=== PATIENT | female | born 2005 | race Caucasian/White ===

== ENCOUNTER 2023-01-10 08:00 | Outpatient (CLI) | payer OTHER ==
[2023-01-10 15:47] LABS: BILIRUBIN,URINE NEGATIVE (NEGATIVE); GLUCOSE, URINE (UA) NEGATIVE (NEGATIVE); KETONES,URINE (UA) NEGATIVE (NEGATIVE); LEUKOCYTE ESTERASE, URINE NEGATIVE (NEGATIVE); NITRITE,URINE NEGATIVE (NEGATIVE); OCCULT BLOOD,URINE NEGATIVE (NEGATIVE); PH,URINE 6.5 PH (5.0-7.5); PROTEIN,URINE NEGATIVE (NEGATIVE); UROBILINOGEN,URINE 0.2 (NORMAL) E.U./dL (NORMAL)
[2023-01-10 16:16] LABS: BACTERIA,URINE Moderate /HPF (None Seen); CLARITY,URINE HAZY (CLEAR); RBC,URINE None Seen /HPF (0-5); SQUAMOUS EPITHELIAL CELL,UR MANY Squamous (<= Few); WBC,URINE 0-3 /HPF (0-5)
== END 2023-01-10 23:59 | disposition home or self-care (01) ==
LOC: LAB.WC 08:00
PROVIDERS: ATTEND Nurse Practitioner
DX: Z34.90 Encounter for supervision of normal pregnancy, unspecified, unspecified trimester (principal)
CPT/HCPCS: 81001; 87086

== ENCOUNTER 2023-02-11 08:00 | Outpatient (CLI) | payer OTHER ==
[2023-02-11 21:51] LABS: CHLAMYDIA TRACHOMATIS DNA NEGATIVE (NEGATIVE); NEISSERIA GONORRHOEAE DNA NEGATIVE (NEGATIVE); TRICHOMONAS VAGINALIS DNA NEGATIVE (NEGATIVE)
== END 2023-02-11 23:59 | disposition home or self-care (01) ==
LOC: LAB.WC 08:00
PROVIDERS: ATTEND Nurse Practitioner
DX: Z11.3 Encounter for screening for infections with a predominantly sexual mode of transmission (principal)
CPT/HCPCS: 87491; 87591; 87661

== ENCOUNTER 2023-02-11 12:49 | Outpatient (CLI) | payer OTHER ==
--- NOTE | 2023-02-12 14:09 | Ultrasound Report ---
PROCEDURE: OB First Trimester INDICATIONS: POSITIVE TEST OUTSIDE/PRIOR DATING DATA: Last menstrual period (LMP): 11/08/2022. LMP-based estimated date of delivery (JENNIFER): 08/15/2023. First dating scan (date and location): 02/11/2023. Estimated date of delivery (JENNIFER) from first dating scan: 08/13/2023. TECHNIQUE: Real-time scanning was performed of the fetus and maternal pelvic organs, with image documentation. COMPARISON: None. FINDINGS: Intrauterine gestational sac present. Embryo: Hardy-rump length measures 7.78 cm, consistent with 13 weeks and 6 days Heart rate: 148 bpm. Other: Subchorionic hemorrhage measuring 2.1 x 1.5 x 1.9 cm. Measurement variability in dating: +/- 4 weeks by LMP, +/- 7 days by mean sac diameter (use before 6 weeks gestation if crown-rump length not able to be measured), +/- 5 days by crown-rump length (6-12 weeks gestation). Maternal organs: Ovaries appear within normal limits. IMPRESSION: 1.Single live intrauterine consistent with 13 weeks and 6 days. 2.Subchorionic hemorrhage measuring 2.1 cm. Reviewed by: Sen Barnes MD on 02/12/2023 2:08 PM PST Approved by: Sen Barnes MD on 02/12/2023 2:08 PM PST Station ID: [id number]
== END 2023-02-11 12:50 | disposition home or self-care (01) ==
LOC: DI 12:49
PROVIDERS: ATTEND Nurse Practitioner
DX: O20.8 Other hemorrhage in early pregnancy (principal); Z3A.13 13 weeks gestation of pregnancy; Z11.3 Encounter for screening for infections with a predominantly sexual mode of transmission
CPT/HCPCS: 87491; 87591; 87661

== ENCOUNTER 2023-03-15 23:42 | Emergency (ER) | payer OTHER ==
[2023-03-16 00:07] LABS: BILIRUBIN,URINE NEGATIVE (NEGATIVE); GLUCOSE, URINE (UA) NEGATIVE (NEGATIVE); KETONES,URINE (UA) TRACE mg/dL (NEGATIVE); LEUKOCYTE ESTERASE, URINE NEGATIVE (NEGATIVE); NITRITE,URINE NEGATIVE (NEGATIVE); OCCULT BLOOD,URINE NEGATIVE (NEGATIVE); PROTEIN,URINE NEGATIVE (NEGATIVE); UROBILINOGEN,URINE 0.2 (NORMAL) E.U./dL (NORMAL)
[2023-03-16 00:17] LABS: CLARITY,URINE CLEAR (CLEAR); HCG UR QUAL POSITIVE
--- NOTE | 2023-03-16 00:25 | ED Physician Documentation ---
PD HPI ABD PAIN - Stated complaint Stated Complaint: ABD PX - Chief complaint Chief Complaint: Abd Pain - History obtained from History obtained from: Patient - Additional information Additional information: 17yoF at 18wks gestation presents by private vehicle from home for intermittent sharp LUQ pain since this morning. Unable identify what makes it better or worse. Here to see if baby is "kicking on stomach". Denies vaginal bleeding, loss of fluids, dysuria. Complaint of white discharge in triage, however patient denies discharge or vaginal complaints today. Review of Systems Constitutional: denies: Fever, Chills GI: reports: Abdominal Pain. denies: Nausea, Vomiting, Constipation, Diarrhea Neurologic: denies: Generalized weakness, Focal weakness, Numbness PD PAST MEDICAL HISTORY - Past Medical History Past Medical History: No Cardiovascular: None Respiratory: None Neuro: None Endocrine/Autoimmune: None GI: None GLOBAL ANALYTICS HEAD: None : None HEENT: None Psych: None Musculoskeletal: None - Past Surgical History Past Surgical History: No - Allergies Allergies/Adverse Reactions: Allergies Allergy/AdvReac Type Severity Reaction Status Date / Time No Known Drug Allergies Allergy Verified 03/15/23 23:44 - Social History Does the pt smoke?: No Smoking Status: Never smoker Does the pt drink ETOH?: No Does the pt have substance abuse?: No - Immunizations Immunizations are current?: Yes PD ED PE NORMAL - Vitals Vital signs reviewed: Yes - General General: Alert and oriented X 3, No acute distress, Well developed/nourished - Cardiac Cardiac: RRR, Strong equal pulses - Respiratory Respiratory: No respiratory distress - Abdomen Abdomen: Soft, Non tender, Non distended, Other (gravid consistent with gestational age) - Extremities Extremities: No deformity, No tenderness to palpate, Normal ROM s pain, No edema - Neuro Neuro: Alert and oriented X 3, vp publisher development 2-12 intact, No motor deficit, Normal speech - Psych Psych: Normal mood, Normal affect Results - Vitals Vitals: Vital Signs - 24 hr 03/15/23 03/16/23 23:44 00:31 Temperature 36.5 C Heart Rate 86 88 Respiratory 16 18 Rate Blood Pressure 140/76 H 119/67 O2 Saturation 100 98 Oxygen O2 Source Room air - Labs Labs: Laboratory Tests 03/15/23 03/15/23 23:52 23:52 Urine Color YELLOW Urine Clarity CLEAR Urine pH 6.0 Ur Specific [place] >=1.030 H Urine Protein NEGATIVE Urine Glucose (UA) NEGATIVE Urine Ketones TRACE Urine Occult Blood NEGATIVE Urine Nitrite NEGATIVE Urine Bilirubin NEGATIVE Urine Urobilinogen 0.2 (NORMAL) Ur Leukocyte Esterase NEGATIVE Ur Microscopic Review NOT INDICATED Urine Culture Comments NOT INDICATED Urine HCG, Qual POSITIVE PD Medical Decision Making - ED course Complexity details: re-evaluated patient, considered differential, d/w patient, d/w family ED course: Left upper quadrant tenderness for 1 day. Abdomen is soft, uterus is gravid, no reproducible tenderness to light or deep palpation in any quadrant of the abdomen. [id number] ultrasound shows fetus at corresponding gestational age with appropriate heart tones. Based on patient's gestational age is highly unlikely that the fetus is pressing on stomach or other organs. Patient relieved after seeing ultrasound of fetus and declines blood work. She will follow with her CONCHE OPERATOR as previously scheduled. Departure - Departure Disposition: 01 Home, Self Care Clinical Impression: Abdominal pain Qualifiers: Abdominal location: left upper quadrant Qualified Code(s): R10.12 - Left upper quadrant pain Condition: Stable Instructions: Abdominal Pain Comments: Everything appears to be normal with baby per bedside ultrasound. Your urine did not show any signs of infection. Continue to follow-up with your CONCHE OPERATOR as previously scheduled.You can also try taking [id number]-[id number] acid medications to see if this helps such as pepcid. This is safe in Forms: PCP List Discharge Date/Time: 03/16/23 00:31
[2023-03-16 00:38] VITALS: BP 119/67; O2SAT 98
== END 2023-03-16 00:31 | disposition home or self-care (01) ==
LOC: ED 23:42
DX: O26.892 Other specified pregnancy related conditions, second trimester (principal); R10.12 Left upper quadrant pain; Z3A.18 18 weeks gestation of pregnancy
CPT/HCPCS: 81001; 81003; 81025; 81514; 87086; 99283

== ENCOUNTER 2023-03-27 18:26 | Outpatient (CLI) | payer OTHER ==
--- NOTE | 2023-03-28 11:04 | Ultrasound Report ---
PROCEDURE: OB Anatomy Scan INDICATIONS: SUPERVISION OF OUTSIDE/PRIOR DATING DATA: Last menstrual period (LMP): 11/08/2022. LMP-based estimated date of delivery (JENNIFER): 08/15/2023. First dating scan (date and location): 02/11/2023. Estimated date of delivery (JENNIFER) from first dating scan: 08/13/2023. The below data below was generated using the clinical JENNIFER of 08/15/2023 TECHNIQUE: Real-time scanning was performed of the fetus, with image documentation and biometric measurements. Endovaginal scanning: Not performed. COMPARISON: Ultrasound 02/11/2023 FINDINGS: General: A single living intrauterine gestation is present. Presentation: Variable Placenta: Placental position is posterior, without previa. Amniotic fluid index: 16.6 cm, within normal limits for gestational age. heart rate: 137 beats per minute. Maternal cervical canal: Closed, 7.8 cm biometrics: Biparietal diameter: 4.8 cm, 20 weeks 3 days, 71% Head circumference: 17.8 cm, 20 weeks 2 days, 62% Abdominal circumference: 16.3 cm, 21 weeks 3 days, 80% Femur length: 30.9 cm, 19 weeks 4 days, 32% Estimated gestational age from initial scan: 19 weeks 6 days Composite gestational age from present scan: 20 weeks 2 days Estimated weight and percentile: 359 g, 82% Measurement variability in biometric dating: +/- 10 days from 12-20 weeks gestation, +/- 2 weeks from 20-30 weeks gestation, +/- 3 weeks at 30 weeks gestation or later. Anatomic survey: Neuro: Ventricles are normal at less than 10 mm. Cisterna magna is normal at 3-11 mm. Cerebellum i s normal in size and morphology. Nuchal skin fold: Normal at less than 6 mm between 14 and 20 weeks gestational age. Face: Not well seen. Spine: No evidence for spina bifida. Heart: 4-chambered heart is present, with normal ventricular outflow tracts. Diaphragm: Diaphragm is intact. Stomach: Left-sided stomach is present. Kidneys: No hydronephrosis. Normal is less than 5 mm in 2nd trimester, less than 7 mm in 3rd trimester. Cord: 3 vessel cord has orthotopic insertion. Bladder: Normal in size. Extremities: All 4 extremities are visualized. IMPRESSION: 1.Single live intrauterine consistent with 20 weeks and 2 days. 2.The facial profile is not well seen. Otherwise, normal anatomic survey. Reviewed by: Sen Barnes MD on 03/28/2023 11:03 AM PST Approved by: Sen Barnes MD on 03/28/2023 11:03 AM PST Station ID: [id number]
== END 2023-03-27 18:27 | disposition home or self-care (01) ==
LOC: DI 18:26
PROVIDERS: ATTEND Nurse Practitioner
DX: Z34.92 Encounter for supervision of normal pregnancy, unspecified, second trimester (principal)

== ENCOUNTER 2023-04-04 08:00 | Outpatient (CLI) | payer OTHER ==
[2023-04-04 20:59] LABS: BACTERIAL VAGINOSIS DNA NEGATIVE (NEGATIVE); CANDIDA GLABRATA DNA NEGATIVE (NEGATIVE); CANDIDA GROUP DNA NEGATIVE (NEGATIVE); CANDIDA KRUSEI DNA NEGATIVE (NEGATIVE); TRICHOMONAS VAGINALIS DNA NEGATIVE (NEGATIVE)
== END 2023-04-04 23:59 | disposition home or self-care (01) ==
LOC: LAB.WC 08:00
PROVIDERS: ATTEND Nurse Practitioner
DX: N89.8 Other specified noninflammatory disorders of vagina (principal)
CPT/HCPCS: 81514

== ENCOUNTER 2023-04-07 13:33 | Outpatient (CLI) | payer OTHER ==
--- NOTE | 2023-04-07 15:17 | Ultrasound Report ---
PROCEDURE: OB Follow up INDICATIONS: SUPERVISION OF NORMAL PREG, F/U TO FAS OUTSIDE/PRIOR DATING DATA: Last menstrual period (LMP): 11/08/2022. LMP-based estimated date of delivery (JENNIFER): 08/15/2023. First dating scan (date and location): 02/11/2023. Estimated date of delivery (JENNIFER) from first dating scan: 08/13/2023. The below data below was generated using the clinical JENNIFER of 08/07/2023 TECHNIQUE: Real-time scanning was performed of the fetus, with image documentation. Endovaginal scanning: Not performed. COMPARISON: 03/27/2023 FINDINGS: General: A single living intrauterine gestation is present. Presentation: Vertex Placenta: Placental position is posterior, without previa. Amniotic fluid index: 11.4 cm, within normal limits for gestational age. heart rate: 141 beats per minute. Maternal cervical canal: 5.1 cm long; normal length is 2.5 cm or more. Other: Facial profile appears normal. However, the nasal bone is not well visualized. IMPRESSION: Single living intrauterine at 21 weeks 3 days, JENNIFER of 08/15/2023. Facial profile appears within normal limits, although the nasal bone is not seen in profile. Short-te rm follow-up is recommended, as findings can be seen in the setting of trisomy 21. Reviewed by: Teodoro Leger MD on 04/07/2023 3:15 PM PST Approved by: Teodoro Leger MD on 04/07/2023 3:15 PM PST Station ID: [id number]
[2023-04-09 20:08] LABS: AFP MOM 0.57 (.); AFP VALUE 40.9 ng/mL (.); DIA MOM See interpretation. (.); DSR (BY AGE) 1 IN 1163 (.); DSR (SECOND TRIMESTER) 1 IN See interpretation. (.); HCG MOM See interpretation. (.); HCG VALUE 6677 mIU/mL (.); INSULIN DEP DIABETES No (.); MULTIPLE GESTATION No (.); OPEN SPINA BIFIDA RISK 1 IN 10000 (.); RACE Caucasian (.); RESULTS Report (.); TEST RESULTS See interpretation. (.); TRISOMY 18 RISK See interpretation. (.); UE3 MOM See interpretation. (.); UE3 VALUE 2.83 ng/mL (.); WEIGHT 160 lbs (.)
== END 2023-04-07 13:34 | disposition home or self-care (01) ==
LOC: DI 13:33
PROVIDERS: ATTEND Nurse Practitioner
DX: Z34.92 Encounter for supervision of normal pregnancy, unspecified, second trimester (principal)
CPT/HCPCS: 36415; 81511

== ENCOUNTER 2023-04-10 11:28 | Outpatient (CLI) | payer OTHER ==
[2023-04-10 11:42] LABS: HCT - HEMATOCRIT 33.2 % (37.0-47.0); HGB - HEMOGLOBIN 10.7 g/dL (12.0-16.0); MEAN CORPUSCULAR HEMOGLOBIN 29.4 pg (27.0-31.0); MEAN CORPUSCULAR HGB CONC 32.2 g/dL (32.0-36.0); MEAN CORPUSCULAR VOLUME 91.2 fL (81.0-99.0); MEAN PLATELET VOLUME 10.5 fL (7.9-10.8); RED BLOOD COUNT 3.64 10^6/uL (4.20-5.40); RED CELL DISTRIBUTION WIDTH 13.1 % (12.0-15.0); WHITE BLOOD COUNT 15.9 x10^3/uL (4.8-10.8)
[2023-04-10 12:11] LABS: ALBUMIN 3.8 g/dL (3.2-5.5); ALBUMIN/GLOBULIN RATIO 1.2 (1.0-2.2); BILIRUBIN,TOTAL 0.2 mg/dL (0.2-1.0); CALCIUM 9.6 mg/dL (8.5-10.3); CREATININE 0.4 mg/dL (0.6-1.3); POTASSIUM 4.4 mmol/L (3.5-4.5)
[2023-04-10 12:12] LABS: THYROID STIMULATING HORMONE 0.66 uIU/mL (0.34-5.60)
[2023-04-10 12:14] LABS: ESTIMATED AVERAGE GLUCOSE 97 mg/dL (70-100)
[2023-04-10 12:19] LABS: FERRITIN 7.5 ng/mL (11.0-306.8)
== END 2023-04-10 11:29 | disposition home or self-care (01) ==
LOC: LAB 11:28
PROVIDERS: ATTEND Nurse Practitioner
DX: R42 Dizziness and giddiness (principal)
CPT/HCPCS: 36415; 80053; 82728; 83036; 84443; 85027

== ENCOUNTER 2023-04-25 15:53 | Emergency (ER) | payer OTHER ==
[2023-04-25 16:43] LABS: BILIRUBIN,URINE NEGATIVE (NEGATIVE); GLUCOSE, URINE (UA) NEGATIVE (NEGATIVE); KETONES,URINE (UA) NEGATIVE (NEGATIVE); LEUKOCYTE ESTERASE, URINE NEGATIVE (NEGATIVE); NITRITE,URINE NEGATIVE (NEGATIVE); OCCULT BLOOD,URINE NEGATIVE (NEGATIVE); PROTEIN,URINE NEGATIVE (NEGATIVE); UROBILINOGEN,URINE 0.2 (NORMAL) E.U./dL (NORMAL)
[2023-04-25 16:44] LABS: CLARITY,URINE HAZY (CLEAR)
[2023-04-25 16:45] LABS: BASOPHILS % (AUTO) 0.3 %; EOSINOPHILS # (AUTO) 0.1 10^3/uL (0.0-0.7); EOSINOPHILS % (AUTO) 0.5 %; HCT - HEMATOCRIT 35.1 % (37.0-47.0); HGB - HEMOGLOBIN 11.2 g/dL (12.0-16.0); LYMPHOCYTES # (AUTO) 1.4 10^3/uL (1.5-3.5); LYMPHOCYTES % (AUTO) 10.6 %; MEAN CORPUSCULAR HEMOGLOBIN 29.4 pg (27.0-31.0); MEAN CORPUSCULAR HGB CONC 31.9 g/dL (32.0-36.0); MEAN CORPUSCULAR VOLUME 92.1 fL (81.0-99.0); MEAN PLATELET VOLUME 10.5 fL (7.9-10.8); MONOCYTES # (AUTO) 0.6 10^3/uL (0.0-1.0); MONOCYTES % (AUTO) 4.7 %; NEUTROPHILS # (AUTO) 10.7 10^3/uL (1.5-6.6); NEUTROPHILS % (AUTO) 81.3 %; PLT - PLATELET COUNT 252 10^3/uL (130-450); RED BLOOD COUNT 3.81 10^6/uL (4.20-5.40); RED CELL DISTRIBUTION WIDTH 14.4 % (12.0-15.0); WHITE BLOOD COUNT 13.1 x10^3/uL (4.8-10.8)
[2023-04-25 16:50] LABS: BACTERIA,URINE Rare /HPF (None Seen); RBC,URINE None Seen /HPF (0-5); SQUAMOUS EPITHELIAL CELL,UR MANY Squamous (<= Few); WBC,URINE 0-3 /HPF (0-5)
--- NOTE | 2023-04-25 16:58 | ED Physician Documentation ---
History of Present Illness - Stated complaint Stated Complaint: CHEST PX/NAUSEA/WEAKNESS - Chief complaint Chief Complaint: Cardiac - History obtained from History obtained from: Patient - Additonal information Additional information: Patient is a 17-year-old female, G1, P0 who is approximately 24 weeks presenting for evaluation of palpitations that been ongoing for the past several months. She states that around 1:00 today she felt like her heart was racing. She reports that her symptoms have been on and off for months and she is scheduled to have a property assessment monitor placed next week but that her symptoms today seem like they are lasting longer than usual. She was also diagnosed with anemia in her 2 weeks ago and has been taking iron supplements. She reports ongoing fatigue. No shortness of air. No abdominal pain, nausea, vomiting. She is feeling baby move. Denies abdominal cramping, vaginal bleeding or leakage of fluids, back pain.Her OB is through [facility] and she sees Jessica Avendano. She is on iron replacement as well as a baby aspirin. She reports concern for preeclampsia as she has had headaches in the past including today although not severe as well as developing a little swelling in her legs.She read online that these could be symptoms of preeclampsia which prompted her concern. Reports that last appointment her blood pressure was in the 130s. Review of Systems Constitutional: denies: Fever Cardiac: reports: Palpitations Respiratory: denies: Dyspnea GI: denies: Abdominal Pain, Vomiting : denies: Dysuria Musculoskeletal: reports: Extremity swelling Neurologic: denies: Syncope PD PAST MEDICAL HISTORY - Past Medical History Cardiovascular: None Respiratory: None Neuro: None Endocrine/Autoimmune: None GI: None HOSE HANDLER: None : None HEENT: None Psych: None Musculoskeletal: None - Past Surgical History Past Surgical History: No - Present Medications Home Medications: Ambulatory Orders Medication Instructions Recorded Confirmed Aspirin [[place]] 81 mg PO DAILY 04/25/23 04/25/23 Ferrous Sulfate [Feosol] 325 mg PO DAILY 04/25/23 04/25/23 - Allergies Allergies/Adverse Reactions: Allergies Allergy/AdvReac Type Severity Reaction Status Date / Time No Known Drug Allergies Allergy Verified 04/25/23 16:10 - Social History Does the pt smoke?: No Smoking Status: Never smoker Does the pt drink ETOH?: No Does the pt have substance abuse?: No - Immunizations Immunizations are current?: Yes PD ED PE NORMAL - General General: Alert and oriented X 3, No acute distress, Well developed/nourished - HEENT HEENT: Atraumatic, PERRL, EOMI, Moist mucous membranes, Pharynx benign - Neck Neck: Supple, no meningeal sign - Cardiac Cardiac: RRR, Strong equal pulses - Respiratory Respiratory: No respiratory distress, Clear bilaterally - Abdomen Abdomen: Normal bowel sounds, Soft, Non tender, Other (Gravid abdomen with uterus above umbilicus) - Derm Derm: Warm and dry - Extremities Extremities: Other (Minimal swelling to bilateral ankles) - Neuro Neuro: Alert and oriented X 3, No motor deficit, No sensory deficit, Normal speech Results - Vitals Vitals: Vital Signs - 24 hr 04/25/23 04/25/23 04/25/23 16:07 16:40 17:10 Temperature 36.3 C L Heart Rate 95 93 94 Respiratory 16 16 16 Rate Blood Pressure 136/80 H 129/83 H 121/81 H O2 Saturation 100 99 98 04/25/23 04/25/23 17:30 18:30 Temperature Heart Rate 95 99 Respiratory 18 22 Rate Blood Pressure 130/69 119/63 O2 Saturation 98 100 Oxygen O2 Source Room air - EKG (time done) 1640 EKG releavant findings:: EKG personally interpreted by author of this note. Relevant findings are: Rate 99, normal sinus rhythm, no STEMI, QTc 396 - Labs Labs: Laboratory Tests 04/25/23 04/25/23 04/25/23 16:30 16:36 16:36 WBC 13.1 H RBC 3.81 L Hgb 11.2 L Hct 35.1 L MCV 92.1 MCH 29.4 MCHC 31.9 L RDW 14.4 Plt Count 252 MPV 10.5 Neut # (Auto) 10.7 H Lymph # (Auto) 1.4 L Mason # (Auto) 0.6 Eos # (Auto) 0.1 Baso # (Auto) 0.0 Absolute Nucleated RBC 0.00 Nucleated RBC % 0.0 Sodium 135 Potassium 3.4 L Chloride 102 Carbon Dioxide 25 Anion Gap 8.0 BUN 10 Creatinine 0.5 L Estimated GFR (MDRD) 159 Glucose 100 Calcium 9.7 Magnesium 1.4 L Total Bilirubin 0.2 AST 12 ALT 15 Alkaline Phosphatase 103 Total Protein 7.2 Albumin 4.0 Globulin 3.2 Albumin/Globulin Ratio 1.3 Urine Color YELLOW Urine Clarity HAZY Urine pH 6.0 Ur Specific [place] 1.025 Urine Protein NEGATIVE Urine Glucose (UA) NEGATIVE Urine Ketones NEGATIVE Urine Occult Blood NEGATIVE Urine Nitrite NEGATIVE Urine Bilirubin NEGATIVE Urine Urobilinogen 0.2 (NORMAL) Ur Leukocyte Esterase NEGATIVE Urine RBC None Seen Urine WBC 0-3 Ur Squamous Epith Cells MANY Squamous H Urine Bacteria Rare Ur Microscopic Review INDICATED Urine Culture Comments NOT INDICATED PD Medical Decision Making - ED course Complexity details: reviewed results, re-evaluated patient, d/w patient, d/w family ED course: Pt is a 17 yo F, 24 weeks with recent palpitations. Scheduled for property assessment monitor next week. EKG without ischemia. CBC, chemistries, UA reviewed. K 3.4. and Mg 1.4 which were replaced. Pt given IV fluids. Feeling better here. Has had some headache but normal neuro exam and headache does not suggest central sinus sinus thrombosis, SAH, pre eclampsia. Initial BP reading over 130 but remainder are improved. No protein in UA. L&D evaluated fetus with good activity and heart rate. No signs of precipitous labor. No symptoms to suggest ACS or PE. Pt counseled on need for close follow up with OB and PCP. Advised on concerning symptoms to return for. Departure - Departure Disposition: 01 Home, Self Care Clinical Impression: Palpitations, Second trimester , Hypomagnesemia, Hypokalemia Condition: Stable Instructions: ED Palpitations Follow-Up: Jessica Machado ARNP [Primary Care Provider] - [facility] [Provider Group] Comments: Your EKG here does not show any irregular rhythm and we have not noticed 1 on her property assessment monitor. Please make sure to keep your appointment next week for the property assessment monitor. Your labs today are also reassuring. Your anemia is getting better. Your potassium and magnesium are also slightly low so you were given replacements of this. Please make sure that you are staying hydrated. Please make sure you are having close follow-up with your SUPER[employer]OR [employer]. Return to the ER with any worsening symptoms. Forms: PCP List Discharge Date/Time: 04/25/23 18:30
[2023-04-25 17:07] LABS: ALBUMIN/GLOBULIN RATIO 1.3 (1.0-2.2); BILIRUBIN,TOTAL 0.2 mg/dL (0.2-1.0); CALCIUM 9.7 mg/dL (8.5-10.3); CREATININE 0.5 mg/dL (0.6-1.3); MAGNESIUM 1.4 mg/dL (1.7-2.3); POTASSIUM 3.4 mmol/L (3.5-4.5); TOTAL PROTEIN 7.2 g/dL (6.4-8.9)
[2023-04-25] MEDS: SODIUM CHLORIDE 0.9% 1,000 ML IV STA (17:12)
[2023-04-25] MEDS: MAGNESIUM SULFATE 2 GRAM 2 GM/50 ML BAG IV ONE (17:23)
[2023-04-25] MEDS: POTASSIUM BICARB 25 MEQ TABLET PO ONE (17:23)
[2023-04-25] MEDS: ONDANSETRON 4 MG/2 ML VIAL IVP STA (17:23)
[2023-04-25 18:35] VITALS: BP 119/63; O2SAT 100
== END 2023-04-25 18:30 | disposition home or self-care (01) ==
LOC: ED 15:53
DX: O26.892 Other specified pregnancy related conditions, second trimester (principal); Z3A.24 24 weeks gestation of pregnancy; R00.2 Palpitations; E83.42 Hypomagnesemia; E87.6 Hypokalemia; Z79.82 Long term (current) use of aspirin; Z79.899 Other long term (current) drug therapy
CPT/HCPCS: 36415; 80053; 81001; 83735; 85025; 93005; 96365; 96375; 99284; A9270; 81003; 87086

== ENCOUNTER 2023-04-29 12:15 | Outpatient (CLI) | payer OTHER ==
--- NOTE | 2023-04-30 07:49 | Ultrasound Report ---
PROCEDURE: OB Follow up INDICATIONS: ABN ATENATAL US OUTSIDE/PRIOR DATING DATA: Last menstrual period (LMP): 11/08/2022. LMP-based estimated date of delivery (JENNIFER): 08/15/2023. First dating scan (date and location): 02/11/2023. Estimated date of delivery (JENNIFER) from first dating scan: 08/13/2023. TECHNIQUE: Real-time scanning was performed of the fetus, with image documentation and biometric measurements. COMPARISON: 04/07/2023, 03/27/2023 FINDINGS: General: A single living intrauterine gestation is present. Presentation: Transverse Placenta: Placental position is posterior, without previa. Amniotic fluid index: 16.1 cm, within normal limits for gestational age. heart rate: 141 beats per minute. Maternal cervical canal: 5.4 cm long; normal length is 2.5 cm or more. Estimated age today is 24 weeks and 4 days. The nasal bone is probably normal on today's study (for example image 1-1 01/03) IMPRESSION: The nasal bone is probably normal on today's study (image 1-1 01/03). Please correlate w ith maternal risk factors and other testing to determine the actual risk of aneuploidy. Reviewed by: Dustin Mauricio MD on 04/30/2023 7:48 AM PDT Approved by: Dustin Mauricio MD on 04/30/2023 7:48 AM PDT Station ID: [id number]
== END 2023-04-29 12:16 | disposition home or self-care (01) ==
LOC: DI 12:15
PROVIDERS: ATTEND Nurse Practitioner
DX: O28.3 Abnormal ultrasonic finding on antenatal screening of mother (principal); Z3A.24 24 weeks gestation of pregnancy

== ENCOUNTER 2023-08-11 18:54 | Inpatient (IN) | payer OTHER ==
[2023-08-11 19:32] LABS: BASOPHILS % (AUTO) 0.3 %; EOSINOPHILS % (AUTO) 0.4 %; HCT - HEMATOCRIT 42.2 % (37.0-47.0); HGB - HEMOGLOBIN 13.6 g/dL (12.0-16.0); LYMPHOCYTES # (AUTO) 1.4 10^3/uL (1.5-3.5); LYMPHOCYTES % (AUTO) 13.9 %; MEAN CORPUSCULAR HEMOGLOBIN 28.3 pg (27.0-31.0); MEAN CORPUSCULAR HGB CONC 32.2 g/dL (32.0-36.0); MEAN CORPUSCULAR VOLUME 87.7 fL (81.0-99.0); MEAN PLATELET VOLUME 11.9 fL (7.9-10.8); MONOCYTES # (AUTO) 0.4 10^3/uL (0.0-1.0); MONOCYTES % (AUTO) 4.1 %; NEUTROPHILS # (AUTO) 8.3 10^3/uL (1.5-6.6); NEUTROPHILS % (AUTO) 80.3 %; PLT - PLATELET COUNT 193 10^3/uL (130-450); RED BLOOD COUNT 4.81 10^6/uL (4.20-5.40); WHITE BLOOD COUNT 10.3 x10^3/uL (4.8-10.8)
[2023-08-11 19:48] LABS: ALBUMIN 3.5 g/dL (3.2-5.5); ALBUMIN/GLOBULIN RATIO 1.1 (1.0-2.2); BILIRUBIN,TOTAL 0.2 mg/dL (0.2-1.0); CALCIUM 9.5 mg/dL (8.5-10.3); CREATININE 0.6 mg/dL (0.6-1.3); POTASSIUM 4.1 mmol/L (3.5-4.5); TOTAL PROTEIN 6.6 g/dL (6.4-8.9)
[2023-08-11] MEDS ORDERED: TRANEXAMIC ACID IN NACL 1,000 MG/100 ML BAG IV PRN (20:43)
[2023-08-11] MEDS ORDERED: CARBOPROST TROMETHAMINE 250 MCG/ML VIAL IM PRN (20:43)
[2023-08-11] MEDS ORDERED: miSOPROStoL 200 MCG TABLET BC PRN (20:43)
[2023-08-11] MEDS ORDERED: OXYTOCIN 10 UNIT/ML VIAL IM PRN (20:43)
[2023-08-11] MEDS ORDERED: lidocaine 1% 20 ML MDV ID PRN (20:43)
[2023-08-11] MEDS ORDERED: OXYTOCIN/SODIUM CHLORIDE 500 ML IV PRN (20:43)
[2023-08-11] MEDS ORDERED: METHYLERGONOVINE 0.2 MG/ML VIAL IM PRN (20:43)
[2023-08-11] MEDS ORDERED: SODIUM CHLORIDE FLUSH 0.9% 10 ML SYRINGE IVP PRN (20:43)
[2023-08-11 20:49] LABS: CREATININE,URINE 94.1 mg/dL
--- NOTE | 2023-08-11 20:52 | HISTORY & PHYSICAL EXAMINATION ---
Admit History - Visit Reason Visit Reason: Other - : 1 Parity: 0 Premature: 0 Ectopic: 0 : 0 Care: positive: [facility] Risk/History: positive: induced HTN Smoking Status: Never smoker - Mother's Labs Mother's Blood Type: positive: O Mother's RH: positive: Positive GBS: positive: Group B Step Negative Rubella Status: positive: Immune - Other Maternal History Other Maternal History: HPI: This 18 yo @ 39+3 weeks by sure LMP and confirmed by 13+6 week ultrasound. She had noticed increased edema yesterday and hadn't been feeling good through the day (mild headache, nausea). Presented to L&D with an initial BP of 150/90, followed by 145/94 on repeat a few minutes later. Serum labs overall normal, but notable urine PCR: 9.4. Denies severe headache, visual disturbances, right upper quadrant abdominal pain, or vomiting. Extended discussion on preeclampsia and the recommendations for delivery. Agreeable to admission and medical induction of labor to begin with cervical ripening. WILL ACCEPT A BLOOD TRANSFUSION in the event of an emergency. Intermittent contraction, but not painful. Upon arrival her cervix was closed/thick/high/posterior and vertex with intact membranes. She has been a patient of [facility] Care since 23 weeks gestation and, until today, remained uncomplicated with the exception of mild anemia (taking oral iron). Second trimester cardiac study: Sinus tachy w/ rare PACs- Low Risk. ROS: All other symptoms reviewed and were negative except per HPI. 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 Sexual partner does NOT have HSV (oral or genital). Medical Hx: no significant Surgical Hx: none Social Hx: Monogamous with male partner. Stopped drinking alcohol due to . Denies current use of tobacco, marijuana or other recreational drugs. Reports that she is safe in current relationship. Family Hx: Denies family history of congenital anomalies, Cystic Fibrosis or chromosomal abnormalities. Allergies: NKDA Medications: FeSO4, LDASA Course: LMP: 11/08/2022 JENNIFER by LMP: 08/15/2023 02/11/2023 / 13+6 /C/W dates Final JENNIFER= 08/15/2023 Pre- Weight:144.8 BMI: 25.74 Blood type: O+ Rh: Positive Antibody: Negative CBC: PLT 276 HCT 36.1 HGB 11.6 RUB: Immune VZV: Immune HBsAg: Negative HepC: NR RPR/AB-EIA: NR HIV: NR PAP: N/A GC/CT: 02/12/2024 Negative HSV:denies in self and partner Genetic testin04/07/23 QUAD Normal Covid: unvaccinated Glucola A1C 04/10/23 5.0. Declined glucola FAS: 03/27/2023 Placenta: Posterior Cord: 3VC KAY: 16.6cm EFW: 359; 82%tile Physical exam: Normocephalic, atraumatic Heart RRR w/o M/G/R Lungs CTAB Abdomen gravid, soft, nontender. EFW 3700g FHR baseline 130, moderate variability, + accelerations, no decelerations Contractions palpate moderate every 5-6 minutes with soft resting tone SVE closed, thick, high, vertex, membranes intact Bilateral LE's 2+ pitting edema, UE 1+ edema Mood is good. Assessment: 18 yo @ 39+3 weeks gestation by 13+6 wk U/S Preeclampsia with mild features FHR Cat I GBS NEG Plan: Admit to [facility] for cervical ripening (50mcg BC misoprostol) and MEDICAL induction of labor Repeat CBC and CMP tomorrow (08/12/23) Continuous monitoring Jacuzzi PRN. Nitrous oxide PRN. Epidural per maternal request. Anticipate . teacher physically impaired MD consulted and agrees with current management plan. Reva verbally consents to my participation in her care as student nurse route service manager. PATRIZIA Starr, Student Nurse Topology Professor - [facility] Current EDU 08/15/23 Gestation 39 Weeks and 3 Days 1 Para 0 Vital Signs Temperature 36.7 C 08/11/23 18:59 Heart Rate 81 08/11/23 18:59 Respiratory Rate 16 08/11/23 18:59 Blood Pressure 149/92 H 08/11/23 18:59 Temperature 36.7 C 08/11/23 18:59 Heart Rate 81 08/11/23 18:59 Respiratory Rate 16 08/11/23 18:59 Blood Pressure 141/92 H 08/11/23 19:14 O2 Saturation If not protocol: Oxygen Flow, liters/minute - NST Procedure NST Procedure Start Date 08/11/23 Start Time 18:58 Stop Time 20:00 Vibroacoustic Stimulation Used No Patient States Movement Yes Meds/Allgy - Home Medications Home Medications: Ambulatory Orders Medication Instructions Recorded Confirmed Ferrous Sulfate [Feosol] 325 mg PO DAILY 04/25/23 07/13/23 - Allergies Allergies/Adverse Reactions: Allergies Allergy/AdvReac Type Severity Reaction Status Date / Time No Known Drug Allergies Allergy Verified 07/13/23 07:20 Physical - Abdominal Exam Vital Signs: Temp Pulse Resp BP Pulse Ox O2 Flow Rate 36.7 C 81 16 141/92 H 08/11/23 18:59 08/11/23 18:59 08/11/23 18:59 08/11/23 19:14 Contraction Frequency (min/apart): q 5-6 Contraction Intensity: positive: Mild Uterine Resting Tone: positive: Soft - Monitoring Heart Rate Baseline: 130 Strip Review: positive: Category I - Presentation Presentation: positive: Vertex - Vaginal Exam Membranes: positive: Membranes intact Dilation (in cm): closed Effacement (%): thick Station: positive: -3 Cervical Position: positive: Posterior - Speculum Exam Speculum Exam Performed: positive: No Plan for Labor - Plan For Labor I expect patient to be DC'd or transferred within 96 hours.: Yes
[2023-08-11 20:59] LABS: PROTEIN/CREATININE RATIO,URINE 9.4 (<=0.2)
[2023-08-11] MEDS ORDERED: LABETALOL 20 MG/4 ML SYRINGE IVP PRN ×3 (21:15)
[2023-08-11] MEDS ORDERED: NIFEdipine 10 MG CAPSULE PO PRN (21:15)
[2023-08-11] MEDS ORDERED: hydrALAZINE INJ 20 MG/ML VIAL IVP PRN ×2 (21:15)
[2023-08-11] MEDS: miSOPROStoL 100 MCG TABLET BC SCH (22:12)
--- NOTE | 2023-08-12 06:40 | PROVIDER PROGRESS NOTE ---
Labor Progress Note - Uterine Monitoring Uterine Monitoring Mode: positive: External toco Contraction Frequency (min/apart): 1-3.5 Contraction Intensity: positive: Mild Uterine Resting Tone: positive: Soft - Monitoring Monitor Mode: positive: External ultrasound Heart Rate Variability: positive: Moderate (6-25 bmp) Accelerations: positive: Present, 15x15 Decelerations: positive: None Strip Review: positive: Category I - Vaginal Exam Dilation (in cm): 1 Effacement (%): 50 Station: -3 Cervical Position: Posterior - Labor Progress Note Labor Progress Note/Additional Text: S: Slept through most of the night. Catarina frequently. Starting to have increased discomfort with contractions. slightly anxious, coping well, understands situation after our discussions, feels well informed. O: FHR baseline 135-145, moderate variability, + accels, no significant or recurrent decels. Contractions q 1-3.5min, palpate mild. soft resting tone. S/p 2 doses 50mcg BC misoprostol. 0600am dose held r/t frequency and increasing discomfort of contractions. SVE 1/50/-3/posterior, membranes intact @ 5:50 SVE unchanged @ 0830. Agreeable to cervical ripening balloon placement, successful placement with speculum (80cc U/ 80cc V) 08/12/23 labs: serum unremarkable. Urine PCR 9.4 08/13/23 labs: am labs pending. A: 18 yo @ 39+3 wks gestation by sure LMP c/w 13-week ultrasound Medical IOL for preeclampsia without severe features FHR Category I GBS neg Rh positive P: Continuous monitoring. Consider resuming misoprostol if contractions space out. Continued tension on CRB. Reassess 12 hours after placement if it has not fallen out encourage ambulation, birthing ball, Jacuzzi tub. Labor support to facilitate desired labor pain management Epidural per maternal request. Reviewed plan of care with on-call physician Anticipate . PATRIZIA Starr, Student Nurse Soft Mud Molder
[2023-08-12 11:42] LABS: BASOPHILS # (AUTO) 0.1 10^3/uL (0.0-0.1); BASOPHILS % (AUTO) 0.4 %; EOSINOPHILS # (AUTO) 0.1 10^3/uL (0.0-0.7); EOSINOPHILS % (AUTO) 0.6 %; HCT - HEMATOCRIT 40.6 % (37.0-47.0); HGB - HEMOGLOBIN 13.1 g/dL (12.0-16.0); LYMPHOCYTES # (AUTO) 1.5 10^3/uL (1.5-3.5); MEAN CORPUSCULAR HEMOGLOBIN 28.5 pg (27.0-31.0); MEAN CORPUSCULAR HGB CONC 32.3 g/dL (32.0-36.0); MEAN CORPUSCULAR VOLUME 88.3 fL (81.0-99.0); MEAN PLATELET VOLUME 12.1 fL (7.9-10.8); MONOCYTES # (AUTO) 0.6 10^3/uL (0.0-1.0); MONOCYTES % (AUTO) 5.3 %; NEUTROPHILS # (AUTO) 9.2 10^3/uL (1.5-6.6); NEUTROPHILS % (AUTO) 79.8 %; PLT - PLATELET COUNT 191 10^3/uL (130-450); RED CELL DISTRIBUTION WIDTH 14.3 % (12.0-15.0); WHITE BLOOD COUNT 11.6 x10^3/uL (4.8-10.8)
--- NOTE | 2023-08-12 11:58 | PROVIDER PROGRESS NOTE ---
Labor Progress Note - Uterine Monitoring Uterine Monitoring Mode: positive: External toco Contraction Frequency (min/apart): 2-4 Contraction Intensity: positive: Mild to moderate Uterine Resting Tone: positive: Soft - Monitoring Monitor Mode: positive: External ultrasound Heart Rate Baseline: 145 Heart Rate Variability: positive: Moderate (6-25 bmp) Accelerations: positive: Present, 15x15 Decelerations: positive: None Strip Review: positive: Category I - Labor Progress Note Labor Progress Note/Additional Text: S: Breathing through contractions rating pain 8/10vps. Increased in intensity since this morning. Not using any intervention for pain management at this time. has been at her bedside but stepped off the unit for a bit. BP 140's-150's/80's-90's. Denies headache, visual disturbances or epigastric pain. O: FHR 145-150, moderate variability, + accelerations, - decelerations. 2+ pitting edema to lower extremities and 1+ to upper extremities. CRB spontaneously expelled with void. A: 18yo @39+4 wks gestation by sure LMP and 13 week ultrasound Medical induction of labor for preeclampsia WITHOUT severe features. Status post 2 doses 50mcg BC misoprostol for cervical ripening. Status post expulsion of CRB Early labor Category I tracing GBS negative P: . SVE if contractions space out Consider repeat dose of misoprostol vs oxytocin with spaced contractions Continuous monitoring Continue ampicillin for GBS prophylaxis per protocol. Will encouraged rotation in bed on peanut ball after patient is comfortable with epidural. Anticipate . PATRIZIA Starr, Student Nurse Mushroom Press Operator
[2023-08-12 11:59] LABS: ALBUMIN 3.4 g/dL (3.2-5.5); ALBUMIN/GLOBULIN RATIO 1.1 (1.0-2.2); BILIRUBIN,TOTAL 0.2 mg/dL (0.2-1.0); CALCIUM 9.3 mg/dL (8.5-10.3); CREATININE 0.6 mg/dL (0.6-1.3); POTASSIUM 3.8 mmol/L (3.5-4.5); TOTAL PROTEIN 6.5 g/dL (6.4-8.9)
--- NOTE | 2023-08-12 12:10 | ANESTHESIA ---
Pre-Anesthesia VS, & Labs - Diagnosis Active Labor - Procedure Labor Epidural Vital Signs: Temp Pulse Resp BP Pulse Ox O2 Flow Rate 36.9 C 81 16 149/92 H 08/11/23 20:43 08/11/23 20:43 08/11/23 20:43 08/11/23 20:43 Height: 5 ft 3 in Weight (kg): 92.986 kg Body Mass Index: 36.3 BMI Classification: Obese - Is Patient ?: Yes - Lab Results Current Lab Results: Laboratory Tests 08/12/23 11:36: Sodium 134 L, Potassium 3.8, Chloride 107, Carbon Dioxide 19 L, Anion Gap 8.0, BUN 13, Creatinine 0.6, Estimated GFR (MDRD) 127, Glucose 133 H, Calcium 9.3, Total Bilirubin 0.2, AST 14, ALT 10, Alkaline Phosphatase 264 H, Total Protein 6.5, Albumin 3.4, Globulin 3.1, Albumin/Globulin Ratio 1.1 08/12/23 11:36: WBC 11.6 H, RBC 4.60, Hgb 13.1, Hct 40.6, MCV 88.3, MCH 28.5, MCHC 32.3, RDW 14.3, Plt Count 191, MPV 12.1 H, Neut # (Auto) 9.2 H, Lymph # (Au to) 1.5, [place] # (Auto) 0.6, Eos # (Auto) 0.1, Baso # (Auto) 0.1, Absolute Nucleated RBC 0.00, Nucleated RBC % 0.0 08/11/23 22:30: Blood Type O POSITIVE, Antibody Screen NEGATIVE 08/11/23 19:25: Lactate Dehydrogenase 178 08/11/23 19:25: Sodium 136, Potassium 4.1, Chloride 106, Carbon Dioxide 22, Anion Gap 8.0, BUN 11, Creatinine 0.6, Estimated GFR (MDRD) 127, Glucose 116 H, Calcium 9.5, Total Bilirubin 0.2, AST 15, ALT 11, Alkaline Phosphatase 269 H, Total Protein 6.6, Albumin 3.5, Globulin 3.1, Albumin/Globulin Ratio 1.1 08/11/23 19:25: WBC 10.3, RBC 4.81, Hgb 13.6, Hct 42.2, MCV 87.7, MCH 28.3, MCHC 32.2, RDW 14.0, Plt Count 193, MPV 11.9 H, Neut # (Auto) 8.3 H, Lymph # (Auto) 1.4 L, [place] # (Auto) 0.4, Eos # (Auto) 0.0, Baso # (Auto) 0.0, Absolute Nucleated RBC 0.00, Nucleated RBC % 0.0 Fish Bones: 08/12/23 11:36 08/12/23 11:36 Home Medications and Allergies Active Medications Carboprost Tromethamine (Carboprost Tromethamine 250 Mcg/Ml Vial) 250 mcg IM Q15M PRN PRN Reason: Step 4: Hemorrhage protocol Hydralazine HCl (Hydralazine Inj 20 Mg/Ml Vial) 5 - 10 mg IVP Q20M PRN; Protocol PRN Reason: SBP> or= 160 OR DBP> or= 110 Hydralazine HCl (Hydralazine Inj 20 Mg/Ml Vial) 10 mg IVP .ONCE PRN; Protocol PRN Reason: SBP> or= 160 OR DBP> or= 110 Lactated Ringer's (Lr) 1,000 mls @ 100 mls/hr IV .Q10H SOFYA Oxytocin/Sodium Chloride (Pitocin/Sodium Chloride) 500 mls @ 999 mls/hr IV PRN PRN; Protocol PRN Reason: POST- HEMORR PREVENTION Stop: 08/16/23 20:44 Tranexamic Acid (Tranexamic 1,000 Mg/100ml-Nacl) 1,000 mg in 100 mls @ 600 mls/hr IV .ONCE PRN PRN Reason: EBL >1200mL and within 3hr Stop: 08/16/23 20:44 Labetalol HCl (Labetalol 20 Mg/4 Ml Syringe) 20 - 80 mg IVP Q10M PRN; Protocol PRN Reason: SBP> or= 160 OR DBP> or= 110 Labetalol HCl (Labetalol 20 Mg/4 Ml Syringe) 20 mg IVP .ONCE PRN; Protocol PRN Reason: SBP> or= 160 OR DBP> or= 110 Labetalol HCl (Labetalol 20 Mg/4 Ml Syringe) 20 - 40 mg IVP Q10M PRN; Protocol PRN Reason: SBP> or= 160 OR DBP> or= 110 Lidocaine HCl (Lidocaine 1% 20 Ml Mdv) 20 ml ID .ONCE PRN PRN Reason: PERINEAL REPAIR Stop: 08/16/23 20:44 Methylergonovine Maleate (Methylergonovine 0.2 Mg/Ml Vial) 0.2 mg IM .ONCE PRN PRN Reason: Step 2: Hemorrhage protocol Stop: 08/16/23 20:44 Misoprostol (Misoprostol 200 Mcg Tablet) 800 mcg BC .ONCE PRN PRN Reason: Step 3: Hemorrhage protocol Stop: 08/16/23 20:44 Misoprostol (Misoprostol 100 Mcg Tablet) 50 mcg BC Q4H SOFYA Last Admin: 08/12/23 02:22 Dose: 50 mcg Nifedipine (Nifedipine 10 Mg Capsule) 10 - 20 mg PO Q20M PRN; Protocol PRN Reason: SBP> or= 160 OR DBP> or= 110 Oxytocin (Oxytocin 10 Unit/Ml Vial) 10 unit IM .ONCE PRN PRN Reason: Step one: If no IV access Stop: 08/16/23 20:44 Sodium Chloride (Sodium Chloride Flush 0.9% 10 Ml Syringe) 10 ml IVP 0 100,0900,1700 SOFYA Sodium Chloride (Sodium Chloride Flush 0.9% 10 Ml Syringe) 10 ml IVP PRN PRN PRN Reason: NEEDED PER PROVIDER ORDERS Ferrous Sulfate [Feosol] 325 mg PO DAILY 04/25/23 Allergies/Adverse Reactions: Allergies Allergy/AdvReac Type Severity Reaction Status Date / Time No Known Drug Allergies Allergy Verified 07/13/23 07:20 Anes History & Medical History - Medical History Cardiovascular: reports: None Pulmonary: reports: None Gastrointestinal: reports: None Urinary: reports: None Neuro: reports: None Musculoskeletal: reports: None Endocrine/Autoimmune: reports: None Blood Disorders: reports: None Smoking Status: Never smoker - Obstetrical History : 1 Parity: 0 Events: reports: induced HTN Exam General: Alert, Oriented x3, Cooperative Dental: WNL Mouth Openin Fingerbreadth Mallampati classification: II Thyromental Distance: 4-6 cm Plan Anesthesia Type: Epidural Consent for Procedure(s) Verified and Reviewed: Yes Code Status: Attempt Resuscitation ASA classification: 2-Mild systemic disease Is this case an emergency?: No
--- NOTE | 2023-08-12 13:06 | PROVIDER PROGRESS NOTE ---
Subjective - Subjective Subjective: I was present and in direct supervision of student throughout the course of patient care and agree with above documentation. Objective - Lab Results Fish Bones: 08/12/23 11:36 08/12/23 11:36 Other Labs: Lab Results x24hrs 08/12/23 08/12/23 08/11/23 Range/Units 11:36 11:36 22:30 WBC 11.6 H (4.8-10.8) x10^3/uL RBC 4.60 (4.20-5.40) 10^6/uL Hgb 13.1 (12.0-16.0) g/dL Hct 40.6 (37.0-47.0) % MCV 88.3 (81.0-99.0) fL MCH 28.5 (27.0-31.0) pg MCHC 32.3 (32.0-36.0) g/dL RDW 14.3 (12.0-15.0) % Plt Count 191 (130-450) 10^3/uL MPV 12.1 H (7.9-10.8) fL Neut # (Auto) 9.2 H (1.5-6.6) 10^3/uL Lymph # (Auto) 1.5 (1.5-3.5) 10^3/uL [place] # (Auto) 0.6 (0.0-1.0) 10^3/uL Eos # (Auto) 0.1 (0.0-0.7) 10^3/uL Baso # (Auto) 0.1 (0.0-0.1) 10^3/uL Absolute Nucleated RBC 0.00 x10^3/uL Nucleated RBC % 0.0 /100WBC Sodium 134 L (135-145) mmol/L Potassium 3.8 (3.5-4.5) mmol/L Chloride 107 (101-111) mmol/L Carbon Dioxide 19 L (21-32) mmol/L Anion Gap 8.0 (6-13) BUN 13 (6-20) mg/dL Creatinine 0.6 (0.6-1.3) mg/dL Estimated GFR (MDRD) 127 (>89) Glucose 133 H (74-104) mg/dL Calcium 9.3 (8.5-10.3) mg/dL Total Bilirubin 0.2 (0.2-1.0) mg/dL AST 14 (10-42) IU/L ALT 10 (10-60) IU/L Alkaline Phosphatase 264 H (42-121) IU/L Lactate Dehydrogenase (140-271) IU/L Total Protein 6.5 (6.4-8.9) g/dL Albumin 3.4 (3.2-5.5) g/dL Globulin 3.1 (2.1-4.2) g/dL Albumin/Globulin Ratio 1.1 (1.0-2.2) U Random Total Protein mg/dL Urine Creatinine mg/dL Ur Total Protein Timed mg/dL Protein/Creatinin Ratio (<=0.2) Blood Type O POSITIVE Antibody Screen NEGATIVE 08/11/23 08/11/23 08/11/23 Range/Units 19:25 19:25 19:25 WBC 10.3 (4.8-10.8) x10^3/uL RBC 4.81 (4.20-5.40) 10^6/uL Hgb 13.6 (12.0-16.0) g/dL Hct 42.2 (37.0-47.0) % MCV 87.7 (81.0-99.0) fL MCH 28.3 (27.0-31.0) pg MCHC 32.2 (32.0-36.0) g/dL RDW 14.0 (12.0-15.0) % Plt Count 193 (130-450) 10^3/uL MPV 11.9 H (7.9-10.8) fL Neut # (Auto) 8.3 H (1.5-6.6) 10^3/uL Lymph # (Auto) 1.4 L (1.5-3.5) 10^3/uL [place] # (Auto) 0.4 (0.0-1.0) 10^3/uL Eos # (Auto) 0.0 (0.0-0.7) 10^3/uL Baso # (Auto) 0.0 (0.0-0.1) 10^3/uL Absolute Nucleated RBC 0.00 x10^3/uL Nucleated RBC % 0.0 /100WBC Sodium 136 (135-145) mmol/L Potassium 4.1 (3.5-4.5) mmol/L Chloride 106 (101-111) mmol/L Carbon Dioxide 22 (21-32) mmol/L Anion Gap 8.0 (6-13) BUN 11 (6-20) mg/dL Creatinine 0.6 (0.6-1.3) mg/dL Estimated GFR (MDRD) 127 (>89) Glucose 116 H (74-104) mg/dL Calcium 9.5 (8.5-10.3) mg/dL Total Bilirubin 0.2 (0.2-1.0) mg/dL AST 15 (10-42) IU/L ALT 11 (10-60) IU/L Alkaline Phosphatase 269 H (42-121) IU/L Lactate Dehydrogenase 178 (140-271) IU/L Total Protein 6.6 (6.4-8.9) g/dL Albumin 3.5 (3.2-5.5) g/dL Globulin 3.1 (2.1-4.2) g/dL Albumin/Globulin Ratio 1.1 (1.0-2.2) U Random Total Protein mg/dL Urine Creatinine mg/dL Ur Total Protein Timed mg/dL Protein/Creatinin Ratio (<=0.2) Blood Type Antibody Screen 08/11/23 08/11/23 Range/Units 19:20 19:20 WBC (4.8-10.8) x10^3/uL RBC (4.20-5.40) 10^6/uL Hgb (12.0-16.0) g/dL Hct (37.0-47.0) % MCV (81.0-99.0) fL MCH (27.0-31.0) pg MCHC (32.0-36.0) g/dL RDW (12.0-15.0) % Plt Count (130-450) 10^3/uL MPV (7.9-10.8) fL Neut # (Auto) (1.5-6.6) 10^3/uL Lymph # (Auto) (1.5-3.5) 10^3/uL [place] # (Auto) (0.0-1.0) 10^3/uL Eos # (Auto) (0.0-0.7) 10^3/uL Baso # (Auto) (0.0-0.1) 10^3/uL Absolute Nucleated RBC x10^3/uL Nucleated RBC % /100WBC Sodium (135-145) mmol/L Potassium (3.5-4.5) mmol/L Chloride (101-111) mmol/L Carbon Dioxide (21-32) mmol/L Anion Gap (6-13) BUN (6-20) mg/dL Creatinine (0.6-1.3) mg/dL Estimated GFR (MDRD) (>89) Glucose (74-104) mg/dL Calcium (8.5-10.3) mg/dL Total Bilirubin (0.2-1.0) mg/dL AST (10-42) IU/L ALT (10-60) IU/L Alkaline Phosphatase (42-121) IU/L Lactate Dehydrogenase (140-271) IU/L Total Protein (6.4-8.9) g/dL Albumin (3.2-5.5) g/dL Globulin (2.1-4.2) g/dL Albumin/Globulin Ratio (1.0-2.2) U Random Total Protein 888 mg/dL Urine Creatinine 94.1 mg/dL Ur Total Protein Timed 883 mg/dL Protein/Creatinin Ratio 9.4 H (<=0.2) Blood Type Antibody Screen
[2023-08-12] MEDS: LACTATED RINGERS 1,000 ML IV SCH (13:58)
[2023-08-12] MEDS: OXYTOCIN/SODIUM CHLORIDE 500 ML IV SCH (13:59)
[2023-08-12] MEDS ORDERED: NALOXONE 0.4 MG/ML VIAL IVP PRN (17:34)
[2023-08-12] MEDS ORDERED: ROPIVACAINE 0.2% 200 MG/100 ML BAG EP PRN (17:34)
[2023-08-12] MEDS ORDERED: ePHEDrine 50 MG/ML VIAL IVP PRN (17:34)
[2023-08-12] MEDS ORDERED: LIDOCAINE 2%-EPI 1:100000 20 ML MDV ONE (17:39)
--- NOTE | 2023-08-12 19:11 | PROVIDER PROGRESS NOTE ---
Labor Progress Note - Monitoring Monitor Mode: positive: External ultrasound Heart Rate Baseline: 145 Heart Rate Variability: positive: Moderate (6-25 bmp) Accelerations: positive: Present, 15x15 Decelerations: positive: None Strip Review: positive: Category I - Vaginal Exam Dilation (in cm): 4.5 Effacement (%): 90 Station: -2 Cervical Position: Anterior - Labor Progress Note Labor Progress Note/Additional Text: S: Reva is comfortable with her epidural. Her is supportive at the bedside. Feels much more relaxed and well informed. O: FHR 145, moderate variability, + accelerations, -decelerations. Contractions q 1.5-2 minutes SVE 4.5/90/-2, anterior, vertex. Pitocin @ 9mu/min SROM, small amount clear fluid. A: 18yo @ 39+4 weeks gestation by 13 week u/s Medical induction for preeclampsia without severe features. Active labor GBS negative P: Maintain epidural for adequate labor anesthesia. Continuous monitoring Continue to titrate pitocin for adequate uterine contractions by unit protocol Will encouraged rotation in bed on peanut ball Anticipate . PATRIZIA Starr, Student Nurse Plate Grainer Apprentice
[2023-08-12 23:09] LABS: BASOPHILS # (AUTO) 0.1 10^3/uL (0.0-0.1); BASOPHILS % (AUTO) 0.3 %; EOSINOPHILS % (AUTO) 0.1 %; HCT - HEMATOCRIT 42.6 % (37.0-47.0); HGB - HEMOGLOBIN 13.8 g/dL (12.0-16.0); LYMPHOCYTES # (AUTO) 1.2 10^3/uL (1.5-3.5); MEAN CORPUSCULAR HEMOGLOBIN 28.8 pg (27.0-31.0); MEAN CORPUSCULAR HGB CONC 32.4 g/dL (32.0-36.0); MEAN CORPUSCULAR VOLUME 88.9 fL (81.0-99.0); MEAN PLATELET VOLUME 12.1 fL (7.9-10.8); MONOCYTES % (AUTO) 6.2 %; NEUTROPHILS # (AUTO) 12.9 10^3/uL (1.5-6.6); NEUTROPHILS % (AUTO) 84.6 %; PLT - PLATELET COUNT 191 10^3/uL (130-450); RED BLOOD COUNT 4.79 10^6/uL (4.20-5.40); RED CELL DISTRIBUTION WIDTH 14.4 % (12.0-15.0); WHITE BLOOD COUNT 15.3 x10^3/uL (4.8-10.8)
[2023-08-12 23:23] LABS: ALBUMIN 3.2 g/dL (3.2-5.5); ALBUMIN/GLOBULIN RATIO 1.1 (1.0-2.2); BILIRUBIN,TOTAL 0.3 mg/dL (0.2-1.0); CALCIUM 9.2 mg/dL (8.5-10.3); CREATININE 0.7 mg/dL (0.6-1.3); POTASSIUM 4.5 mmol/L (3.5-4.5); TOTAL PROTEIN 6.2 g/dL (6.4-8.9)
[2023-08-13] MEDS ORDERED: fentaNYL 100 MCG/2 ML VIAL ONE (00:16)
[2023-08-13] MEDS ORDERED: SODIUM CHLORIDE 0.9% 10 ML VIAL IVP ONE (00:16)
[2023-08-13] MEDS ORDERED: ROPIVACAINE 0.2% 200 MG/100 ML BAG EP PRN (00:29)
--- NOTE | 2023-08-13 00:29 | ANESTHESIA PROCEDURE NOTE ---
Anesthesia Epidural Template - Patient Report Patient Reports: positive: Inadequate control - Other Comments Other Comments: Called for increasing pain with contractions. Rates pain 3/10. T-6 level on right side, L5 level on left side. Epidural bolused with 100mcg fentanyl with 8 ml of PF NS. Added PCEA 6ml every 10mins. After bolus, reports pain 0/10
[2023-08-13] MEDS ORDERED: SODIUM CHLORIDE 0.9% IV SCH (04:44)
[2023-08-13] MEDS ORDERED: GENTAMICIN PER PHARMACY IV SCH (04:44)
[2023-08-13] MEDS: AMPICILLIN 2 GM in SODIUM CHLORIDE 0.9% MINIBAG 100 ML IV SCH (04:55)
[2023-08-13] MEDS ORDERED: SODIUM CHLORIDE 0.9% 100ML 100 ML IV ONE ×2 (05:45)
[2023-08-13] MEDS ORDERED: AMPICILLIN 2 GM in SODIUM CHLORIDE 0.9% MINIBAG 100 ML IV SCH (06:00)
[2023-08-13] MEDS: GENTAMICIN 340 MG in SODIUM CHLORIDE 0.9% 100ML 100 ML IV SCH (06:06)
--- NOTE | 2023-08-13 07:24 | DELIVERY NOTE ---
Delivery Note - Anesthetic Anesthetic Type: - Estimated Blood Loss Estimated Blood Loss (in cc): 200 - Delivery Comments (Free Text/Narrative) Delivery Comments (Free Text/Narrative): Note created in error from incorrect account.
[2023-08-13] MEDS ORDERED: HYDROCORTISONE 1% CREAM 28 GM TUBE PR PRN (07:34)
[2023-08-13] MEDS: SODIUM CHLORIDE FLUSH 0.9% 10 ML SYRINGE IVP SCH (07:50)
[2023-08-13] MEDS: ACETAMINOPHEN 500 MG TABLET PO SCH (08:00)
[2023-08-13] MEDS: IBUPROFEN 800 MG TABLET PO SCH (08:00)
--- NOTE | 2023-08-13 08:30 | DELIVERY NOTE ---
Delivery Note - Labor Labor: positive: Induced by oxytocin - Infant Delivery Method Delivery Method: positive: Spontaneous vaginal delivery - Cervical Ripening Method Cervical Ripening Method: positive: Misoprostil - Presentation Presentation: positive: Vertex, OA - occiput anterior, GRETCHEN - left occiput anterior - Nuchal Cord Nuchal Cord: positive: None - Anesthetic Anesthetic Type: - Amniotic Fluid Description Amniotic Fluid Description: positive: Clear - Vacuum Use Indication for Vacuum Use: positive: Prolonged 2nd stage - Episiotomy Type Episiotomy Type: positive: None - Laceration Laceration: positive: 1st degree, Vaginal - Suture Suture Type: positive: Vicryl Suture Size: positive: 3-0 - Delivery Outcome Delivery Outcome: positive: Livebirth - [place]: positive: Placed in direct skin contact with mother, Bulb syringe, Stimulated, [place] used sex: positive: Female - Cord Cord: positive: 3 vessels - Placenta Placenta: positive: Intact, Spontaneous - Estimated Blood Loss Estimated Blood Loss (in cc): 200 - Delivery Comments (Free Text/Narrative) Delivery Comments (Free Text/Narrative): This 18 yo @ 39+3 weeks (by sure LMP and confirmed by 13+6 week ultrasound) presented to L&D on the evening of 08/11/23 after noticing increased leg edema and not feeling well through the day (mild headache, nausea). Upon presentation, her initial BP of 150/90, followed by 145/94 on repeat a few minutes later. Serum labs overall normal, but notable urine PCR: 9.4. DENIED severe headache, visual disturbances, right upper quadrant abdominal pain, or vomiting. She was diagnosed with preeclampsia WITHOUT severe features. Extended discussion on preeclampsia and the recommendations for delivery. Agreeable to admission and medical induction of labor to begin with cervical ripening. agricultural engineering technologist physician made aware of presentation, clinical findings and diagnosis and agreed to plan of care for medical induction of labor. She received 50mcg misoprostol x2 doses, followed by cervical ripening balloon. SROM @ 1748 on 08/12/23, further labor management included pitocin (max infusion rate 15mu/min). FHR pattern demonstrated 145-155, baseline in a primarily category I tracing prior to second stage. Epidural placed upon maternal request. She then progressed to complete/complete @ 0215 on 08/13/23. Pushing began 5 minutes later @ 0220. Prolonged second stage. Delivery team "time out" at 2 hours of pushing. Elevated maternal temperature, tachycardia baseline 165, and presumptive diagnosis of chorioamnionitis. Antibiotic therapy initiated. agricultural engineering technologist OBGYN called and notified of timeline of pushing, presumptive diagnosis and plan to initiated antibiotic therapy. Pediatrics called and asked to standby for delivery. After 4 hours of pushing, maternal efforts had significantly decreased. agricultural engineering technologist OBGYN was called to delivery room for consultation for vacuum assistance secondary to poor maternal efforts. Extended discussion with family that baby would be at risk for additional bleeding both with prolonged second stage and for possible vacuum assistance. Reva and her verbally agreed to administation of vitamin k if vacuum assistance was needed. However, prior to OBGYN arrival, there was significant improvement to maternal pushing efforts and subsequent advancement of station. : Vaginal delivery of a viable female infant on 08/13/2023@ 0634. No nuchal cord. Attempted delivery of the shoulder was successful after gentle traction and my finger under the posterior axilla. Delayed delivery of body after delivery of shoulder requiring continued traction. The was placed on maternal abdomen, stimulated, dried and placed then placed skin to skin. Apgars 6@ 1 min, and 6@ 5 minutes. Pitocin administered via IV for hemostasis. The umbilical cord was allowed to stop pulsating at which time it was doubly clamped by delivering provider and cut by FOB. 3VC. Cord blood was obtained. Fundal massage and gently cord traction applied for active management of the third stage, placenta delivered spontaneously and intact @0640. EBL 200. Placenta was WAS NOT sent to pathology. Thirty units of Pitocin were added to the IV fluid and allowed to run freely. Uterine massage was performed until uterus was deemed firm. 1st degree midline vaginal laceration. It was repaired in the usual fashion under adequate epidural anesthesia with a running suture of 3-0 Vicryl. Perineum was intact. Upon re-inspection the patient was hemostatic. Uterus again massaged and found to be firm. Needle and sponge counts were correct. Fourth stage: Uterine fundus firm and there is no excessive bleeding. Vaginal exam following completed repair. Tissues of the perineum (intact) vagina (first degree midline lacertation with repair- well approximated) and cervix (intact). Continued maternal skin to skin contact . Family bonding well. Both mother and baby are in stable condition. PATRIZIA Starr Student Nurse Optician Apprentice.
[2023-08-13] MEDS: WITCH HAZEL/GLYCERIN 1 PAD TOP PRN (12:42)
--- NOTE | 2023-08-13 17:33 | PHARMACY PROGRESS NOTE ---
- Best Possible Medication History Admit Date and Time: 08/11/232042 Processed by: Nursing Medications reviewed in ED?: No Medication History completed: Yes Patient Interview: Completed As the person ultimately responsible for medication therapy, providers are able to order a medication from an existing home medication list in [facility] via the "Reconcile Routine" prior to Confirmation of that medication by data support specialist. Such practice is discouraged except when the physician, in their clinical judgment, deems that a medical need exists for a medication without regard to previous use.
--- NOTE | 2023-08-13 18:38 | PROVIDER PROGRESS NOTE ---
Subjective - Prog Note Date Prog Note Date: 08/13/23 Prog Note Time: 18:37 - Subjective Pt reports feeling: Improved Subjective: Subjective: Patient reports she is doing well. Overall comfortable with scheduled pain management Loch[place] appropriate. Denies heavy bleeding. Ambulating some. Tolerating oral intake. Diet: Regular. Voiding without difficulty. Passing flatus. Denies BM. Patient is bonding with baby in room Increased support with breasfeeding from RN team Denies feeling lightheaded, dizzy or excessively fatigued. Objective General: Alert, oriented, no apparent distress. Cardiovascular: 2+ edema LE. Lungs: No increased work of breathing. Abdomen: Uterus firm. Below umbilicus. No guarding or rebound tendernes. Extremities: No pain on palpation. Distal pulses intact. 1900 CBC and CMP pending Objective - Vital Signs/Intake & Output Reviewed Vital Signs: Yes Vital Signs: Vital Signs x48h Temp Pulse Resp BP Pulse Ox 08/13/23 17:53 36.9 C 82 15 129/70 98 08/13/23 15:23 36.7 C 86 18 143/79 H 97 08/13/23 12:43 36.6 C 89 17 128/88 H 98 Intake & Output: Intake & Output 08/10/23 08/11/23 08/12/23 08/13/23 23:59 23:59 23:59 23:59 Intake Total 4719.664 9981.500 Output Total 200 1175 Balance 876.000 457.500 - Objective General Appearance: positive: No acute distress - Lab Results Fish Bones: 08/12/23 22:58 08/12/23 22:58 Other Labs: Lab Results x24hrs 08/12/23 08/12/23 Range/Units 22:58 22:58 WBC 15.3 H (4.8-10.8) x10^3/uL RBC 4.79 (4.20-5.40) 10^6/uL Hgb 13.8 (12.0-16.0) g/dL Hct 42.6 (37.0-47.0) % MCV 88.9 (81.0-99.0) fL MCH 28.8 (27.0-31.0) pg MCHC 32.4 (32.0-36.0) g/dL RDW 14.4 (12.0-15.0) % Plt Count 191 (130-450) 10^3/uL MPV 12.1 H (7.9-10.8) fL Neut # (Auto) 12.9 H (1.5-6.6) 10^3/uL Lymph # (Auto) 1.2 L (1.5-3.5) 10^3/uL [place] # (Auto) 1.0 (0.0-1.0) 10^3/uL Eos # (Auto) 0.0 (0.0-0.7) 10^3/uL Baso # (Auto) 0.1 (0.0-0.1) 10^3/uL Absolute Nucleated RBC 0.00 x10^3/uL Nucleated RBC % 0.0 /100WBC Sodium 137 (135-145) mmol/L Potassium 4.5 (3.5-4.5) mmol/L Chloride 107 (101-111) mmol/L Carbon Dioxide 20 L (21-32) mmol/L Anion Gap 10.0 (6-13) BUN 11 (6-20) mg/dL Creatinine 0.7 (0.6-1.3) mg/dL Estimated GFR (MDRD) 107 (>89) Glucose 75 (74-104) mg/dL Calcium 9.2 (8.5-10.3) mg/dL Total Bilirubin 0.3 (0.2-1.0) mg/dL AST 13 (10-42) IU/L ALT 9 L (10-60) IU/L Alkaline Phosphatase 254 H (42-121) IU/L Total Protein 6.2 L (6.4-8.9) g/dL Albumin 3.2 (3.2-5.5) g/dL Globulin 3.0 (2.1-4.2) g/dL Albumin/Globulin Ratio 1.1 (1.0-2.2) ABX Reporting Has patient been on IV antibiotics over the past 48 hours?: Yes Assessment/Plan - Problem List (1) Vaginal delivery Impression: Assessment and Plan 18yo s/p 08/13/2023 following medical IOL for preeclampsia without severe features. Routine Anticipate discharge 08/15/2023 (2) Mother currently breast-feeding Impression: support by RN team Supplementing some spoon feeding Continue to support as needed (3) Obstetric vaginal laceration Impression: first degree vaginal laceration with repair - tender but able to sit comfortably - continue scheduled IBU and tylenol - topical care and ice encouraged. (4) Chorioamnionitis Impression: prophylactic treatment for chorioamnionitis. Received single dose of ampicillin and gentamicin prior to delivery no excessive tenderness to uterus no excessive bleeding Temperature WNL 1900 CBC pending. - Continue to monitor for s/sx of infection and hemorrhage. (5) Prolonged second stage of labor due to poor maternal effort Impression: increased risk for delayed hemorrhage. monitor for excessive blood loss (6) Prolonged labor antepartum Impression: Increased risk for delayed hemorrhage continue to monitor for excessive bleeding. (7) Pre-eclampsia affecting puerperium Impression: Most recent BP 120's/70's Ongoing edema. Encouraged hydration and ambulation. Denies headaches, visual disturbances or epigastric pain. Preeclamptic precautions reviewed 1900 CBC, CMP pending. PATRIZIA Starr, Student Nurse Aesthetician
[2023-08-13 19:17] LABS: BASOPHILS # (AUTO) 0.1 10^3/uL (0.0-0.1); BASOPHILS % (AUTO) 0.3 %; EOSINOPHILS # (AUTO) 0.1 10^3/uL (0.0-0.7); EOSINOPHILS % (AUTO) 0.3 %; HCT - HEMATOCRIT 33.7 % (37.0-47.0); LYMPHOCYTES # (AUTO) 1.7 10^3/uL (1.5-3.5); LYMPHOCYTES % (AUTO) 8.9 %; MEAN CORPUSCULAR HEMOGLOBIN 28.9 pg (27.0-31.0); MEAN CORPUSCULAR HGB CONC 32.6 g/dL (32.0-36.0); MEAN CORPUSCULAR VOLUME 88.5 fL (81.0-99.0); MEAN PLATELET VOLUME 11.8 fL (7.9-10.8); MONOCYTES # (AUTO) 1.2 10^3/uL (0.0-1.0); MONOCYTES % (AUTO) 5.9 %; NEUTROPHILS # (AUTO) 16.5 10^3/uL (1.5-6.6); NEUTROPHILS % (AUTO) 83.9 %; PLT - PLATELET COUNT 179 10^3/uL (130-450); RED BLOOD COUNT 3.81 10^6/uL (4.20-5.40); RED CELL DISTRIBUTION WIDTH 14.5 % (12.0-15.0); WHITE BLOOD COUNT 19.6 x10^3/uL (4.8-10.8)
[2023-08-13 19:53] LABS: ALBUMIN 2.8 g/dL (3.2-5.5); BILIRUBIN,TOTAL 0.3 mg/dL (0.2-1.0); CALCIUM 8.4 mg/dL (8.5-10.3); CREATININE 1.1 mg/dL (0.6-1.3); POTASSIUM 4.2 mmol/L (3.5-4.5); TOTAL PROTEIN 5.6 g/dL (6.4-8.9)
--- NOTE | 2023-08-14 08:31 | PROVIDER PROGRESS NOTE ---
Subjective - Prog Note Date Prog Note Date: 08/14/23 Prog Note Time: 08:00 - Subjective Pt reports feeling: Improved Subjective: Subjective: Subjective: Was able to rest through the night, did the majority of baby care Patient reports she is doing well. Overall comfortable with scheduled pain management. perineum tender. Feels some rectal discomfort/pressure. Lochia appropriate. Denies heavy bleeding. Ambulating some. Tolerating oral intake. Diet: Regular. Voiding without difficulty. Passing flatus. Denies BM. Patient is bonding with baby in room Increased support with breasfeeding from RN team. Reported several successful feeds overnight. Denies feeling lightheaded, dizzy or excessively fatigued. Objective - Vital Signs/Intake & Output Reviewed Vital Signs: Yes Intake & Output: Intake & Output 08/11/23 08/12/23 08/13/23 08/14/23 23:59 23:59 23:59 23:59 Intake Total 2445.725 8015.500 200 Output Total 200 1325 600 Balance 876.000 307.500 -400 - Objective General Appearance: positive: No acute distress Eyes Bilateral: positive: Normal inspection Neck: positive: Nml inspection Respiratory: positive: No respiratory distress Abdomen: positive: Non-tender Neurologic/Psychiatric: positive: Oriented x3 - Lab Results Fish Bones: 08/13/23 19:13 08/13/23 19:13 Other Labs: Lab Results x24hrs 08/13/23 08/13/23 Range/Units 19:13 19:13 WBC 19.6 H (4.8-10.8) x10^3/uL RBC 3.81 L (4.20-5.40) 10^6/uL Hgb 11.0 L (12.0-16.0) g/dL Hct 33.7 L (37.0-47.0) % MCV 88.5 (81.0-99.0) fL MCH 28.9 (27.0-31.0) pg MCHC 32.6 (32.0-36.0) g/dL RDW 14.5 (12.0-15.0) % Plt Count 179 (130-450) 10^3/uL MPV 11.8 H (7.9-10.8) fL Neut # (Auto) 16.5 H (1.5-6.6) 10^3/uL Lymph # (Auto) 1.7 (1.5-3.5) 10^3/uL [place] # (Auto) 1.2 H (0.0-1.0) 10^3/uL Eos # (Auto) 0.1 (0.0-0.7) 10^3/uL Baso # (Auto) 0.1 (0.0-0.1) 10^3/uL Absolute Nucleated RBC 0.00 x10^3/uL Nucleated RBC % 0.0 /100WBC Sodium 134 L (135-145) mmol/L Potassium 4.2 (3.5-4.5) mmol/L Chloride 105 (101-111) mmol/L Carbon Dioxide 20 L (21-32) mmol/L Anion Gap 9.0 (6-13) BUN 18 (6-20) mg/dL Creatinine 1.1 (0.6-1.3) mg/dL Estimated GFR (MDRD) 63 L (>89) Glucose 112 H (74-104) mg/dL Calcium 8.4 L (8.5-10.3) mg/dL Total Bilirubin 0.3 (0.2-1.0) mg/dL AST 30 (10-42) IU/L ALT 13 (10-60) IU/L Alkaline Phosphatase 199 H (42-121) IU/L Total Protein 5.6 L (6.4-8.9) g/dL Albumin 2.8 L (3.2-5.5) g/dL Globulin 2.8 (2.1-4.2) g/dL Albumin/Globulin Ratio 1.0 (1.0-2.2) - Other Results/Comments Other Results/Comments: Objective General: Alert, oriented, no apparent distress. Cardiovascular: 1+ edema LE. Trace edema UE Lungs: No increased work of breathing. Abdomen: Uterus firm. Below umbilicus. No guarding or rebound tenderness. Extremities: No pain on palpation. Distal pulses intact. 08/14/2023 labs: PLT, LFT's WNL. WBC elevated. Likely related to labor course ABX Reporting Has patient been on IV antibiotics over the past 48 hours?: Yes Assessment/Plan - Problem List (1) Vaginal delivery Impression: Assessment and Plan 18yo s/p 08/13/2023 ppd #1 following medical IOL for preeclampsia without severe features. Routine care Anticipate discharge 08/15/2023 (2) Mother currently breast-feeding Impression: Continue significant support by RN team Supplementing per patient request. Using pacifier for latch training. spoon feeding some. (3) Obstetric vaginal laceration Impression: first degree vaginal laceration with repair - tender but able to sit comfortably - feeling more rectal pressure today. May desire assessment later this afternoon. - continue scheduled IBU and tylenol - topical care and ice encouraged. (4) Chorioamnionitis Impression: prophylactic treatment for chorioamnionitis. Received single dose of ampicillin and gentamicin prior to delivery no excessive tenderness to uterus no excessive bleeding Temperature WNL 1900 CBC pending. - Continue to monitor for s/sx of infection and hemorrhage. (5) Prolonged second stage of labor due to poor maternal effort Impression: increased risk for delayed hemorrhage. monitor for excessive blood loss (6) Prolonged labor antepartum Impression: Increased risk for delayed hemorrhage continue to monitor for excessive bleeding. (7) Pre-eclampsia affecting puerperium Impression: Preeclampsia without severe features. BP's 130/80's Edema significantly improved. Encourage continued hydration and ambulation. Denies headaches, visual disturbances or epigastric pain. most recent serum lab work overall, unremarkable Preeclamptic precautions reviewed
--- NOTE | 2023-08-15 08:35 | Discharge Plan ---
Discharge Plan Problem Reviewed?: Yes Disposition: Home, Self Care Condition: Good Diet: Regular Activity Restrictions: No Restrictions Shower Restrictions: No Driving Restrictions: No Weight Bearing: Full Weight Instruction Topics: Preeclampsia, Vaginal, Self Care, Nutrition , Breastmilk Expressing, Depression No Smoking: If you smoke, Please STOP! Call for help. Follow-up with: Siobhan Nguyen CNM, PATRIZIA [Primary Care Provider] -
--- NOTE | 2023-08-15 08:35 | DISCHARGE SUMMARY ---
<Jessica Mcahado - Last Filed: 08/15/23 12:30> Discharge Summary Admit Date: 08/11/23 Discharge Date: 08/15/23 Discharging Provider: yaakov Nguyen CNM Code Status: Attempt Resuscitation Condition at Discharge: Good Discharge Disposition: 01 Home, Self Care - HPI History of Present Illness: Date of Admission 08/11/2023 Date of Discharge 08/15/2023 Diagnosis on admission: 1. 18 yo @ 39+3 weeks gestation by 13+6 wk U/S 2. Preeclampsia with mild features 3. FHR Cat I 4. GBS NEG Diagnosis on Discharge 1. 18 yo PPD day #2 2. preeclampsia with mild features. 3. suspected chorioamnionitis, treated 4. prolonged second stage 5. first degree vaginal laceration. Brief History: She is a patient of [facility] who presented on 08/11/2023 with complaints of increased leg edema and not feeling well through the day (mild headache, nausea). Upon presentation, her initial BP of 150/90. Serum labs overall normal, but notable urine PCR: 9.4. DENIED severe headache, visual disturbances, right upper quadrant abdominal pain, or vomiting. She was diagnosed with preeclampsia WITHOUT severe features. Medical induction of labor followed with cervical ripening, cervical ripening balloon, and later pitocin. Prolonged second stage. Elevated maternal temperature, tachycardia baseline 165, and presumptive diagnosis of chorioamnionitis. Antibiotic therapy initiated. Single dose of ampicillin and gentamicin prior to delivery of viable female on 08/13/2023@ 0634. Spontaneous head and shoulder delivery. Mild dystocia of the body. Apgars 6 & 8 at 1 & 5 minutes respectively. 1st degree vaginal laceration with repair. 200cc EBL. Serum labs 12 hours with normal platelets and liver function. She has been doing well in her course. She is ambulating some and tolerating a regular diet. Blood pressures overall normal since delivery. Continued LE edema but not worsening. Reviewed ambulation and continued hydration as well as natural lemon as a diuretic. She is urinating without d ifficulty and her lochia is normal. Her pain is well controlled without narcotic management. Has made the decision to pump and feed infant EBM and very comfortable with her decision. She will be discharged to home today on day 2 with recommendations to continue with PRN IBU, Tylenol, and colace. She intends to follow up with [facility] in 1 week for telehealth. She has been given precautions to call if she has any new or worsening fevers, chills, abdominal pain, increasing bleeding, or foul smelling vaginal lochia. Preeclamptic precautions reviewed at length. PATRIZIA Starr, Student Nurse International Trade Manager - ALLERGIES Allergies/Adverse Reactions: Allergies Allergy/AdvReac Type Severity Reaction Status Date / Time No Known Drug Allergies Allergy Verified 07/13/23 07:20 - MEDICATIONS Home Medications: Ambulatory Orders Medication Instructions Recorded Confirmed Ferrous Sulfate [Feosol] 325 mg PO DAILY 04/25/23 08/12/23 - PHYSICAL EXAM AT DISCHARGE General Appearance: positive: No acute distress Eyes Bilateral: positive: Normal inspection Neck: positive: Nml inspection Skin: positive: No rash Neurologic/Psychiatric: positive: Oriented x3 - LABS Result Diagrams: 08/13/23 19:13 08/13/23 19:13 - QUALITY (Female Hip Fx Only) Was patient sent home on osteoporosis medication?: No - FOLLOW UP Follow Up: 1 week telehealth with GRAYSON Nguyen. - TIME SPENT Time Spent in Discharge (Minutes): 20 <Yaakov Nguyen - Last Filed: 08/16/23 18:21> Discharge Summary - HPI History of Present Illness: HOLD DISCHARGE. Disregard above note. Please refer only to progress note. - LABS Result Diagrams: 08/16/23 16:29 08/16/23 16:29
[2023-08-15 14:17] LABS: BASOPHILS % (AUTO) 0.3 %; EOSINOPHILS # (AUTO) 0.2 10^3/uL (0.0-0.7); EOSINOPHILS % (AUTO) 1.5 %; HGB - HEMOGLOBIN 10.8 g/dL (12.0-16.0); LYMPHOCYTES # (AUTO) 1.3 10^3/uL (1.5-3.5); LYMPHOCYTES % (AUTO) 9.9 %; MEAN CORPUSCULAR HEMOGLOBIN 28.6 pg (27.0-31.0); MEAN CORPUSCULAR HGB CONC 31.8 g/dL (32.0-36.0); MEAN CORPUSCULAR VOLUME 89.9 fL (81.0-99.0); MEAN PLATELET VOLUME 11.4 fL (7.9-10.8); MONOCYTES # (AUTO) 0.5 10^3/uL (0.0-1.0); MONOCYTES % (AUTO) 4.3 %; NEUTROPHILS # (AUTO) 10.5 10^3/uL (1.5-6.6); NEUTROPHILS % (AUTO) 82.9 %; PLT - PLATELET COUNT 177 10^3/uL (130-450); RED BLOOD COUNT 3.78 10^6/uL (4.20-5.40); RED CELL DISTRIBUTION WIDTH 14.6 % (12.0-15.0); WHITE BLOOD COUNT 12.7 x10^3/uL (4.8-10.8)
[2023-08-15 14:32] LABS: ALBUMIN 2.9 g/dL (3.2-5.5); ALBUMIN/GLOBULIN RATIO 1.1 (1.0-2.2); BILIRUBIN,TOTAL 0.2 mg/dL (0.2-1.0); CALCIUM 8.5 mg/dL (8.5-10.3); CREATININE 0.7 mg/dL (0.6-1.3); POTASSIUM 4.4 mmol/L (3.5-4.5); TOTAL PROTEIN 5.6 g/dL (6.4-8.9)
--- NOTE | 2023-08-15 15:05 | PROVIDER PROGRESS NOTE ---
Subjective - Subjective Subjective: S: Bonding well with her baby. She is with some difficulty however and she is pumping and bottle feeding as well as supplementing with formula. Her swelling has decreased but remains present. She has had an intermittent headache that resolved with ibuprofen and tylenol. She admittedly has not been drinking enough water and is understandably tired. Her bleeding is decreased and her pain is well controlled with oral medications. Her Penelope is supportive at th e bedside. O: Normocephalic, atraumatic. Heart RRR w/o M/G/R, lungs CTAB, abdomen soft and nontender with fundus firm at U-1, perineum intact, light lochia, rubra, bilateral LE's 1+ pitting edema bilaterally, DTRs 2+, no clonus. Mood is good. Initial urine protein creatinine ratio diagnosing preeclampsia was 9.4 Creatinine: 0.6-->0.6-->0.7-->1.1-->0.7 AST 15-->14-->13-->30-->61 ALT 11-->10-->9-->13-->68 BPs: 129/70, 131/78, 133/82, 142/81, 119/69, 127/81, 130/76, 141/80, 146/85, 131/94 A: 18yo -->P1 PPD#2 s/p TSVD viable female infant Preeclampsia without severe features BPs remain mild range P: Repeat labs in AM and monitor patient over night for signs/symptoms of worse isaiah preeclampsia. Reevaluate for appropriateness for discharge home tomorrow. Work closely with nursing staff on continues throughout the night. Reviewed plan of care with bond runner physician who is in agreement. Objective - Vital Signs/Intake & Output Vital Signs: Vital Signs x48h Temp Pulse Resp BP Pulse Ox 08/15/23 12:59 36.6 C 89 16 131/94 H 08/15/23 08:00 37.0 C 89 17 146/85 H 99 Intake & Output: Intake & Output 08/12/23 08/13/23 08/14/23 08/15/23 23:59 23:59 23:59 23:59 Intake Total 8051.000 7978.500 200 Output Total 200 1325 600 Balance 876.000 307.500 -400 - Lab Results Fish Bones: 08/15/23 14:13 08/15/23 14:13 Other Labs: Lab Results x24hrs 08/15/23 08/15/23 Range/Units 14:13 14:13 WBC 12.7 H (4.8-10.8) x10^3/uL RBC 3.78 L (4.20-5.40) 10^6/uL Hgb 10.8 L (12.0-16.0) g/dL Hct 34.0 L (37.0-47.0) % MCV 89.9 (81.0-99.0) fL MCH 28.6 (27.0-31.0) pg MCHC 31.8 L (32.0-36.0) g/dL RDW 14.6 (12.0-15.0) % Plt Count 177 (130-450) 10^3/uL MPV 11.4 H (7.9-10.8) fL Neut # (Auto) 10.5 H (1.5-6.6) 10^3/uL Lymph # (Auto) 1.3 L (1.5-3.5) 10^3/uL [place] # (Auto) 0.5 (0.0-1.0) 10^3/uL Eos # (Auto) 0.2 (0.0-0.7) 10^3/uL Baso # (Auto) 0.0 (0.0-0.1) 10^3/uL Absolute Nucleated RBC 0.00 x10^3/uL Nucleated RBC % 0.0 /100WBC Sodium 137 (135-145) mmol/L Potassium 4.4 (3.5-4.5) mmol/L Chloride 106 (101-111) mmol/L Carbon Dioxide 24 (21-32) mmol/L Anion Gap 7.0 (6-13) BUN 10 (6-20) mg/dL Creatinine 0.7 (0.6-1.3) mg/dL Estimated GFR (MDRD) 107 (>89) Glucose 74 (74-104) mg/dL Calcium 8.5 (8.5-10.3) mg/dL Total Bilirubin 0.2 (0.2-1.0) mg/dL AST 61 H (10-42) IU/L ALT 68 H (10-60) IU/L Alkaline Phosphatase 186 H (42-121) IU/L Total Protein 5.6 L (6.4-8.9) g/dL Albumin 2.9 L (3.2-5.5) g/dL Globulin 2.7 (2.1-4.2) g/dL Albumin/Globulin Ratio 1.1 (1.0-2.2)
[2023-08-16 04:50] LABS: BASOPHILS % (AUTO) 0.3 %; EOSINOPHILS # (AUTO) 0.3 10^3/uL (0.0-0.7); EOSINOPHILS % (AUTO) 2.4 %; HCT - HEMATOCRIT 32.6 % (37.0-47.0); HGB - HEMOGLOBIN 10.2 g/dL (12.0-16.0); LYMPHOCYTES # (AUTO) 1.7 10^3/uL (1.5-3.5); LYMPHOCYTES % (AUTO) 15.6 %; MEAN CORPUSCULAR HEMOGLOBIN 28.6 pg (27.0-31.0); MEAN CORPUSCULAR HGB CONC 31.3 g/dL (32.0-36.0); MEAN CORPUSCULAR VOLUME 91.3 fL (81.0-99.0); MONOCYTES # (AUTO) 0.4 10^3/uL (0.0-1.0); MONOCYTES % (AUTO) 3.6 %; NEUTROPHILS # (AUTO) 8.3 10^3/uL (1.5-6.6); NEUTROPHILS % (AUTO) 76.8 %; PLT - PLATELET COUNT 191 10^3/uL (130-450); RED BLOOD COUNT 3.57 10^6/uL (4.20-5.40); RED CELL DISTRIBUTION WIDTH 14.6 % (12.0-15.0); WHITE BLOOD COUNT 10.8 x10^3/uL (4.8-10.8)
[2023-08-16 05:10] LABS: ALBUMIN 2.9 g/dL (3.2-5.5); ALBUMIN/GLOBULIN RATIO 1.1 (1.0-2.2); BILIRUBIN,TOTAL 0.2 mg/dL (0.2-1.0); CALCIUM 8.4 mg/dL (8.5-10.3); CREATININE 0.7 mg/dL (0.6-1.3); TOTAL PROTEIN 5.6 g/dL (6.4-8.9)
--- NOTE | 2023-08-16 09:18 | PROVIDER PROGRESS NOTE ---
Subjective - Subjective Subjective: S: Pt very exhausted and got no sleep over night. She was finally able to take a longer nap this morning. Her voiced concerns over night for her mental health and the degree of anxiety she is experiencing. She has made comments stating "my baby does not like me". Her states she will also wake suddenly when attempting to get some rest and express significant fear that her baby will from shaken baby syndrome. She is currently bottle feeding formula and she feels she needs the help of her at this time and this is working well for them. She denies headache, visual disturbances, RUQ or epigastric pain. She continues to experience bilateral LE edema and requests something to help with this. She states she is urinating without difficulty but has not yet had a bowel movement. She is experiencing intermittent, mild left lower quadrant tenderness. She s tates she is passing flatus. Her pain is well controlled with oral medications. She ambulated twice yesterday. O: BPs throughout the night 152/97, 156/85, 150/88, 152/86, 147/79, 142/78, 154/88 AST 61-->58 ALT 68-->77 Creatinine 0.7-->0.7 PLT 177-->191 Heart RRR w/o M/G/R, lungs CTAB, Abdomen soft and nontender with fundus firm at U-2, perineum intact, light lochia rubra, bilateral LE's 2+ pitting edema bilaterally, DTRs 2+, no clonus. Mood is stable in my presence. A: 18yo [id number]--I2 PPD#3 Preeclampsia without severe features Formula feeding anxiety P: Initiate Lasix 20mg IV x 4 doses. 2 hours after first dose of lasix will evaluate effectiveness and determine if labetalol is warranted. Social work consultation initiated. Reviewed with patient and partner my strong recommendation to initiate medication for anxiety/depression. Consulted with refrigerated national truck driver physician who will present to evaluate the patient prior to discharge however agrees with above current plan. Objective - Vital Signs/Intake & Output Vital Signs: Vital Signs x48h Temp Pulse Resp BP Pulse Ox 08/16/23 05:23 36.9 C 78 18 154/88 H 08/16/23 02:00 36.8 C 81 18 142/78 H 98 Intake & Output: Intake & Output 0608/14/23 08/15/23 08/16/23 23:59 23:59 23:59 23:59 Intake Total 1632.500 200 Output Total 1325 600 Balance 307.500 -400 - Lab Results Fish Bones: 08/16/23 04:13 08/16/23 04:13 Other Labs: Lab Results x24hrs 08/16/23 08/16/23 08/15/23 Range/Units 04:13 04:13 14:13 WBC 10.8 (4.8-10.8) x10^3/uL RBC 3.57 L (4.20-5.40) 10^6/uL Hgb 10.2 L (12.0-16.0) g/dL Hct 32.6 L (37.0-47.0) % MCV 91.3 (81.0-99.0) fL MCH 28.6 (27.0-31.0) pg MCHC 31.3 L (32.0-36.0) g/dL RDW 14.6 (12.0-15.0) % Plt Count 191 (130-450) 10^3/uL MPV 12.0 H (7.9-10.8) fL Neut # (Auto) 8.3 H (1.5-6.6) 10^3/uL Lymph # (Auto) 1.7 (1.5-3.5) 10^3/uL [place] # (Auto) 0.4 (0.0-1.0) 10^3/uL Eos # (Auto) 0.3 (0.0-0.7) 10^3/uL Baso # (Auto) 0.0 (0.0-0.1) 10^3/uL Absolute Nucleated RBC 0.00 x10^3/uL Nucleated RBC % 0.0 /100WBC Sodium 137 137 (135-145) mmol/L Potassium 4.0 4.4 (3.5-4.5) mmol/L Chloride 106 106 (101-111) mmol/L Carbon Dioxide 22 24 (21-32) mmol/L Anion Gap 9.0 7.0 (6-13) BUN 13 10 (6-20) mg/dL Creatinine 0.7 0.7 (0.6-1.3) mg/dL Estimated GFR (MDRD) 107 107 (>89) Glucose 72 L 74 (74-104) mg/dL Calcium 8.4 L 8.5 (8.5-10.3) mg/dL Total Bilirubin 0.2 0.2 (0.2-1.0) mg/dL AST 58 H 61 H (10-42) IU/L ALT 77 H 68 H (10-60) IU/L Alkaline Phosphatase 180 H 186 H (42-121) IU/L Total Protein 5.6 L 5.6 L (6.4-8.9) g/dL Albumin 2.9 L 2.9 L (3.2-5.5) g/dL Globulin 2.7 2.7 (2.1-4.2) g/dL Albumin/Globulin Ratio 1.1 1.1 (1.0-2.2) / Range/Units 14:13 WBC 12.7 H (4.8-10.8) x10^3/uL RBC 3.78 L (4.20-5.40) 10^6/uL Hgb 10.8 L (12.0-16.0) g/dL Hct 34.0 L (37.0-47.0) % MCV 89.9 (81.0-99.0) fL MCH 28.6 (27.0-31.0) pg MCHC 31.8 L (32.0-36.0) g/dL RDW 14.6 (12.0-15.0) % Plt Count 177 (130-450) 10^3/uL MPV 11.4 H (7.9-10.8) fL Neut # (Auto) 10.5 H (1.5-6.6) 10^3/uL Lymph # (Auto) 1.3 L (1.5-3.5) 10^3/uL [place] # (Auto) 0.5 (0.0-1.0) 10^3/uL Eos # (Auto) 0.2 (0.0-0.7) 10^3/uL Baso # (Auto) 0.0 (0.0-0.1) 10^3/uL Absolute Nucleated RBC 0.00 x10^3/uL Nucleated RBC % 0.0 /100WBC Sodium (135-145) mmol/L Potassium (3.5-4.5) mmol/L Chloride (101-111) mmol/L Carbon Dioxide (21-32) mmol/L Anion Gap (6-13) BUN (6-20) mg/dL Creatinine (0.6-1.3) mg/dL Estimated GFR (MDRD) (>89) Glucose (74-104) mg/dL Calcium (8.5-10.3) mg/dL Total Bilirubin (0.2-1.0) mg/dL AST (10-42) IU/L ALT (10-60) IU/L Alkaline Phosphatase (42-121) IU/L Total Protein (6.4-8.9) g/dL Albumin (3.2-5.5) g/dL Globulin (2.1-4.2) g/dL Albumin/Globulin Ratio (1.0-2.2)
--- NOTE | 2023-08-16 11:23 | CONSULTATION NOTE ---
Surgery Consult - Admit Date Hospital Admission Date: 08/11/23 - Consult Date Consult Date: 08/16/23 Requesting Provider: PATRIZIA Carrasquillo - Home Meds/Allergies Home Medications: Patient History Medication Instructions Recorded Confirmed Ferrous Sulfate [Feosol] 325 mg PO DAILY 04/25/23 08/12/23 Allergies/Adverse Reactions: Allergies Allergy/AdvReac Type Severity Reaction Status Date / Time No Known Drug Allergies Allergy Verified 07/13/23 07:20 - Vital Signs Vital Signs: Last Vital Signs Temp 98.4 F 08/16/23 11:00 Pulse 90 08/16/23 11:00 Resp 16 08/16/23 11:00 BP 149/89 H 08/16/23 11:00 Pulse Ox 97 08/16/23 11:00 O2 Flow Rate Intake & Output: Intake & Output 08/13/23 08/14/23 08/15/23 08/16/23 23:59 23:59 23:59 23:59 Intake Total 1632.500 200 Output Total 1325 600 Balance 307.500 -400 - Lab Results Result Diagrams: 08/16/23 16:29 08/16/23 16:29 - Consultation Note Consultation Note: HPI: Patient is a 18-year-old G1 now P1 who is status post spontaneous vaginal delivery now day 3. I was consulted due to preeclampsia. Patient has had elevated blood pressures in the nonsevere range. Laboratory values have been fluctuating, initially with an elevated protein to creatinine ratio but normal blood pressures. This subsequently had a brief increase in creatinine, but now currently 0.7. Prior to discharge yesterday, she had a mild elevation in her transaminases, but not double baseline, AST/ALT currently 58/77. She had intermittent headaches yesterday, but these have resolved with Tylenol. No headache for approximate 24 hours. No changes in vision. No right upper quadrant pain. She does have cramping when feeding and baby crying, but no abnormal abdominal pain. Labor course was complicated by preeclampsia without severe features. She had cervical ripening with misoprostol followed by cervical ripening balloon. Spontaneous rupture of membranes and oxytocin. She had a prolonged second stage but delivered spontaneously without need for vacuum assistance. PMH Denies significant history PSH No prior surgeries OB History G1 now P1 with current delivery SH Denies tobacco, alcohol, drugs Family History Noncontributory Allergies No known drug allergies Medications Was on ferrous sulfate and low-dose aspirin during Physical exam: Constitutional: alert, no acute distress, well hydrated, well developed, well nourished, appropriate dress. Cardiovascular: Regular rate and rhythm. Respiratory: no respiratory distress. Clear to auscultation bilaterally Abdomen: nondistended, nontender, no guarding. Neuro: 1+ DTRs, no clonus Extremities: 2+ pitting edema to tibia. Psych: affect and mood appropriate, normal interaction, good eye contact. Laboratory Last Values WBC 10.8 x10^3/uL (4.8-10.8) 08/16/23 04:13 RBC 3.57 10^6/uL (4.20-5.40) L 08/16/23 04:13 Hgb 10.2 g/dL (12.0-16.0) L 08/16/23 04:13 Hct 32.6 % (37.0-47.0) L 08/16/23 04:13 MCV 91.3 fL (81.0-99.0) 08/16/23 04:13 MCH 28.6 pg (27.0-31.0) 08/16/23 04:13 MCHC 31.3 g/dL (32.0-36.0) L 08/16/23 04:13 RDW 14.6 % (12.0-15.0) 08/16/23 04:13 Plt Count 191 10^3/uL (130-450) 08/16/23 04:13 MPV 12.0 fL (7.9-10.8) H 08/16/23 04:13 Neut # (Auto) 8.3 10^3/uL (1.5-6.6) H 08/16/23 04:13 Lymph # (Auto) 1.7 10^3/uL (1.5-3.5) 08/16/23 04:13 [place] # (Auto) 0.4 10^3/uL (0.0-1.0) 08/16/23 04:13 Eos # (Auto) 0.3 10^3/uL (0.0-0.7) 08/16/23 04:13 Baso # (Auto) 0.0 10^3/uL (0.0-0.1) 08/16/23 04:13 Absolute Nucleated RBC 0.00 x10^3/uL 08/16/23 04:13 Nucleated RBC % 0.0 /100WBC 08/16/23 04:13 Sodium 137 mmol/L (135-145) 08/16/23 04:13 Potassium 4.0 mmol/L (3.5-4.5) 08/16/23 04:13 Chloride 106 mmol/L (101-111) 08/16/23 04:13 Carbon Dioxide 22 mmol/L (21-32) 08/16/23 04:13 Anion Gap 9.0 (6-13) 08/16/23 04:13 BUN 13 mg/dL (6-20) 08/16/23 04:13 Creatinine 0.7 mg/dL (0.6-1.3) 08/16/23 04:13 Estimated GFR (MDRD) 107 (>89) 08/16/23 04:13 Glucose 72 mg/dL (74-104) L 08/16/23 04:13 Calcium 8.4 mg/dL (8.5-10.3) L 08/16/23 04:13 Total Bilirubin 0.2 mg/dL (0.2-1.0) 08/16/23 04:13 AST 58 IU/L (10-42) H 08/16/23 04:13 ALT 77 IU/L (10-60) H 08/16/23 04:13 Alkaline Phosphatase 180 IU/L (42-121) H 08/16/23 04:13 Lactate Dehydrogenase 178 IU/L (140-271) 08/11/23 19:25 Total Protein 5.6 g/dL (6.4-8.9) L 08/16/23 04:13 Albumin 2.9 g/dL (3.2-5.5) L 08/16/23 04:13 Globulin 2.7 g/dL (2.1-4.2) 08/16/23 04:13 Albumin/Globulin Ratio 1.1 (1.0-2.2) 08/16/23 04:13 U Random Total Protein 888 mg/dL 08/11/23 19:20 Urine Creatinine 94.1 mg/dL 08/11/23 19:20 Ur Total Protein Timed 883 mg/dL 08/11/23 19:20 Protein/Creatinin Ratio 9.4 (<=0.2) H 08/11/23 19:20 Blood Type O POSITIVE 08/11/23 22:30 Antibody Screen NEGATIVE 08/11/23 22:30 Plan 18-year-old G1, P1 with preeclampsia without severe features. Preeclampsia with severe features -Discussed symptoms of worsening disease. Patient currently asymptomatic. -Agree with plan to start Lasix for bilateral lower extremity edema. This may also help with blood pressure. -If blood pressure remains elevated can consider labetalol for blood pressure management. -Could consider magenesium sulfate, but only criteria for severe features was elevated creatinine 3 days ago as transamminases only mildly elevated. -Recommend keeping overnight for repeat labratory evaluation and blood pressure asssessment. If stable, can likely be discharged tomorrow. -If stable, can be discharged, but if change in status, please consult again.
[2023-08-16] MEDS: FUROSEMIDE 20 MG/2 ML VIAL IVP SCH (11:47)
[2023-08-16 16:36] LABS: BASOPHILS % (AUTO) 0.4 %; EOSINOPHILS # (AUTO) 0.3 10^3/uL (0.0-0.7); EOSINOPHILS % (AUTO) 2.5 %; HCT - HEMATOCRIT 30.9 % (37.0-47.0); HGB - HEMOGLOBIN 10.1 g/dL (12.0-16.0); LYMPHOCYTES # (AUTO) 1.2 10^3/uL (1.5-3.5); MEAN CORPUSCULAR HEMOGLOBIN 29.2 pg (27.0-31.0); MEAN CORPUSCULAR HGB CONC 32.7 g/dL (32.0-36.0); MEAN CORPUSCULAR VOLUME 89.3 fL (81.0-99.0); MEAN PLATELET VOLUME 11.3 fL (7.9-10.8); MONOCYTES # (AUTO) 0.4 10^3/uL (0.0-1.0); MONOCYTES % (AUTO) 3.9 %; NEUTROPHILS # (AUTO) 8.2 10^3/uL (1.5-6.6); NEUTROPHILS % (AUTO) 79.6 %; PLT - PLATELET COUNT 200 10^3/uL (130-450); RED BLOOD COUNT 3.46 10^6/uL (4.20-5.40); RED CELL DISTRIBUTION WIDTH 14.4 % (12.0-15.0); WHITE BLOOD COUNT 10.3 x10^3/uL (4.8-10.8)
[2023-08-16 16:55] LABS: ALBUMIN/GLOBULIN RATIO 1.1 (1.0-2.2); BILIRUBIN,TOTAL 0.2 mg/dL (0.2-1.0); CALCIUM 8.8 mg/dL (8.5-10.3); CREATININE 0.7 mg/dL (0.6-1.3); POTASSIUM 3.8 mmol/L (3.5-4.5); TOTAL PROTEIN 5.7 g/dL (6.4-8.9)
--- NOTE | 2023-08-16 18:36 | PROVIDER PROGRESS NOTE ---
Subjective - Subjective Subjective: S: Patient sitting up in bed eating dinner. She does reports a significant headache and states it is throbbing. She denies visual disturbances, RUQ or epigastric pain. Partner supportive at the bedside. O: Heart RRR w/o M/G/R, lungs CTAB, abdomen soft and nontender with fundus firm at U-2, perineum intact, light lochia rubra, bilateral LE's 2+ pitting edema bilaterally. DTRs 2+ with 1 beat of clonus on the left and 2 beats of clonus on the right. Mood is stable. BPs 153/106, 163/97, 159/94 AST 58-->51 ALT 77-->80 Creatinine 0.7-->0.7 s/p 3 doses of 20mg IV lasix A: 18yo -->P1 PPD#3 s/p TSVB viable female infant Preeclampsia without severe features however monitoring closely for development of progression of severity Formula feeding Concern for mood disturbance P: call center representative physician notified of patient condition and recommends serial blood pressures q 15 min x 2 hours. If blood pressure severe range again will initiate Magnesium per protocol and care will be handed to physician. Reviewed plan of care with patient and RN who verbalized understanding and agree. They deny further questions or concerns at this time. Objective - Vital Signs/Intake & Output Vital Signs: Vital Signs x48h Temp Pulse Resp BP BP Pulse Ox 08/16/23 18:10 75 159/94 H 08/16/23 18:01 36.8 C 70 16 163/97 H 08/16/23 17:55 75 153/106 H 08/16/23 17:35 97 146/93 H 08/16/23 14:20 36.8 C 74 14 139/76 H 98 08/16/23 11:00 36.9 C 90 16 149/89 H 97 Intake & Output: Intake & Output 08/13/23 08/14/23 08/15/23 08/16/23 23:59 23:59 23:59 23:59 Intake Total 1632.500 200 800 Output Total 3104 651 3895 Balance 307.500 -400 -900 - Lab Results Fish Bones: 08/16/23 16:29 08/16/23 16:29 Other Labs: Lab Results x24hrs 08/16/23 08/16/2324 Range/Units 16:29 16:29 04:13 WBC 10.3 (4.8-10.8) x10^3/uL RBC 3.46 L (4.20-5.40) 10^6/uL Hgb 10.1 L (12.0-16.0) g/dL Hct 30.9 L (37.0-47.0) % MCV 89.3 (81.0-99.0) fL MCH 29.2 (27.0-31.0) pg MCHC 32.7 (32.0-36.0) g/dL RDW 14.4 (12.0-15.0) % Plt Count 200 (130-450) 10^3/uL MPV 11.3 H (7.9-10.8) fL Neut # (Auto) 8.2 H (1.5-6.6) 10^3/uL Lymph # (Auto) 1.2 L (1.5-3.5) 10^3/uL [place] # (Auto) 0.4 (0.0-1.0) 10^3/uL Eos # (Auto) 0.3 (0.0-0.7) 10^3/uL Baso # (Auto) 0.0 (0.0-0.1) 10^3/uL Absolute Nucleated RBC 0.00 x10^3/uL Nucleated RBC % 0.0 /100WBC Sodium 136 137 (135-145) mmol/L Potassium 3.8 4.0 (3.5-4.5) mmol/L Chloride 101 106 (101-111) mmol/L Carbon Dioxide 24 22 (21-32) mmol/L Anion Gap 11.0 9.0 (6-13) BUN 11 13 (6-20) mg/dL Creatinine 0.7 0.7 (0.6-1.3) mg/dL Estimated GFR (MDRD) 107 107 (>89) Glucose 85 72 L (74-104) mg/dL Calcium 8.8 8.4 L (8.5-10.3) mg/dL Total Bilirubin 0.2 0.2 (0.2-1.0) mg/dL AST 51 H 58 H (10-42) IU/L ALT 80 H 77 H (10-60) IU/L Alkaline Phosphatase 167 H 180 H (42-121) IU/L Total Protein 5.7 L 5.6 L (6.4-8.9) g/dL Albumin 3.0 L 2.9 L (3.2-5.5) g/dL Globulin 2.7 2.7 (2.1-4.2) g/dL Albumin/Globulin Ratio 1.1 1.1 (1.0-2.2) 08/16/23 Range/Units 04:13 WBC 10.8 (4.8-10.8) x10^3/uL RBC 3.57 L (4.20-5.40) 10^6/uL Hgb 10.2 L (12.0-16.0) g/dL Hct 32.6 L (37.0-47.0) % MCV 91.3 (81.0-99.0) fL MCH 28.6 (27.0-31.0) pg MCHC 31.3 L (32.0-36.0) g/dL RDW 14.6 (12.0-15.0) % Plt Count 191 (130-450) 10^3/uL MPV 12.0 H (7.9-10.8) fL Neut # (Auto) 8.3 H (1.5-6.6) 10^3/uL Lymph # (Auto) 1.7 (1.5-3.5) 10^3/uL [place] # (Auto) 0.4 (0.0-1.0) 10^3/uL Eos # (Auto) 0.3 (0.0-0.7) 10^3/uL Baso # (Auto) 0.0 (0.0-0.1) 10^3/uL Absolute Nucleated RBC 0.00 x10^3/uL Nucleated RBC % 0.0 /100WBC Sodium (135-145) mmol/L Potassium (3.5-4.5) mmol/L Chloride (101-111) mmol/L Carbon Dioxide (21-32) mmol/L Anion Gap (6-13) BUN (6-20) mg/dL Creatinine (0.6-1.3) mg/dL Estimated GFR (MDRD) (>89) Glucose (74-104) mg/dL Calcium (8.5-10.3) mg/dL Total Bilirubin (0.2-1.0) mg/dL AST (10-42) IU/L ALT (10-60) IU/L Alkaline Phosphatase (42-121) IU/L Total Protein (6.4-8.9) g/dL Albumin (3.2-5.5) g/dL Globulin (2.1-4.2) g/dL Albumin/Globulin Ratio (1.0-2.2)
--- NOTE | 2023-08-16 19:54 | PROVIDER PROGRESS NOTE ---
Subjective - Subjective Subjective: BP 164/108, Continue throbbing headache. Denies visual disturbances, RUQ or epigastric pain. Assessment: Preeclampsia with severe features Plan: Secondary to progressing severity of preeclampsia, ged preparation teacher physician notified and care handed off to ged preparation teacher physician to assume care management. Objective - Vital Signs/Intake & Output Vital Signs: Vital Signs x48h Temp Pulse Resp BP BP Pulse Ox 08/16/23 19:00 76 15 145/87 H 08/16/23 18:46 75 134/82 H 99 08/16/23 18:10 75 159/94 H 08/16/23 18:01 36.8 C 70 16 163/97 H 08/16/23 17:55 75 153/106 H 08/16/23 17:35 97 146/93 H 08/16/23 14:20 36.8 C 74 14 139/76 H 98 Intake & Output: Intake & Output 08/13/23 08/14/23 08/15/23 08/16/23 23:59 23:59 23:59 23:59 Intake Total 1632.500 200 800 Output Total 0091 783 1749 Balance 307.500 -400 -1400 - Lab Results Fish Bones: 08/16/23 16:29 08/16/23 16:29 Other Labs: Lab Results x24hrs 08/16/23 08/16/23 08/16/23 Range/Units 16:29 16:29 04:13 WBC 10.3 (4.8-10.8) x10^3/uL RBC 3.46 L (4.20-5.40) 10^6/uL Hgb 10.1 L (12.0-16.0) g/dL Hct 30.9 L (37.0-47.0) % MCV 89.3 (81.0-99.0) fL MCH 29.2 (27.0-31.0) pg MCHC 32.7 (32.0-36.0) g/dL RDW 14.4 (12.0-15.0) % Plt Count 200 (130-450) 10^3/uL MPV 11.3 H (7.9-10.8) fL Neut # (Auto) 8.2 H (1.5-6.6) 10^3/uL Lymph # (Auto) 1.2 L (1.5-3.5) 10^3/uL [place] # (Auto) 0.4 (0.0-1.0) 10^3/uL Eos # (Auto) 0.3 (0.0-0.7) 10^3/uL Baso # (Auto) 0.0 (0.0-0.1) 10^3/uL Absolute Nucleated RBC 0.00 x10^3/uL Nucleated RBC % 0.0 /100WBC Sodium 136 137 (135-145) mmol/L Potassium 3.8 4.0 (3.5-4.5) mmol/L Chloride 101 106 (101-111) mmol/L Carbon Dioxide 24 22 (21-32) mmol/L Anion Gap 11.0 9.0 (6-13) BUN 11 13 (6-20) mg/dL Creatinine 0.7 0.7 (0.6-1.3) mg/dL Estimated GFR (MDRD) 107 107 (>89) Glucose 85 72 L (74-104) mg/dL Calcium 8.8 8.4 L (8.5-10.3) mg/dL Total Bilirubin 0.2 0.2 (0.2-1.0) mg/dL AST 51 H 58 H (10-42) IU/L ALT 80 H 77 H (10-60) IU/L Alkaline Phosphatase 167 H 180 H (42-121) IU/L Total Protein 5.7 L 5.6 L (6.4-8.9) g/dL Albumin 3.0 L 2.9 L (3.2-5.5) g/dL Globulin 2.7 2.7 (2.1-4.2) g/dL Albumin/Globulin Ratio 1.1 1.1 (1.0-2.2) 08/16/23 Range/Units 04:13 WBC 10.8 (4.8-10.8) x10^3/uL RBC 3.57 L (4.20-5.40) 10^6/uL Hgb 10.2 L (12.0-16.0) g/dL Hct 32.6 L (37.0-47.0) % MCV 91.3 (81.0-99.0) fL MCH 28.6 (27.0-31.0) pg MCHC 31.3 L (32.0-36.0) g/dL RDW 14.6 (12.0-15.0) % Plt Count 191 (130-450) 10^3/uL MPV 12.0 H (7.9-10.8) fL Neut # (Auto) 8.3 H (1.5-6.6) 10^3/uL Lymph # (Auto) 1.7 (1.5-3.5) 10^3/uL [place] # (Auto) 0.4 (0.0-1.0) 10^3/uL Eos # (Auto) 0.3 (0.0-0.7) 10^3/uL Baso # (Auto) 0.0 (0.0-0.1) 10^3/uL Absolute Nucleated RBC 0.00 x10^3/uL Nucleated RBC % 0.0 /100WBC Sodium (135-145) mmol/L Potassium (3.5-4.5) mmol/L Chloride (101-111) mmol/L Carbon Dioxide (21-32) mmol/L Anion Gap (6-13) BUN (6-20) mg/dL Creatinine (0.6-1.3) mg/dL Estimated GFR (MDRD) (>89) Glucose (74-104) mg/dL Calcium (8.5-10.3) mg/dL Total Bilirubin (0.2-1.0) mg/dL AST (10-42) IU/L ALT (10-60) IU/L Alkaline Phosphatase (42-121) IU/L Total Protein (6.4-8.9) g/dL Albumin (3.2-5.5) g/dL Globulin (2.1-4.2) g/dL Albumin/Globulin Ratio (1.0-2.2)
[2023-08-16] MEDS ORDERED: LABETALOL 20 MG/4 ML SYRINGE IVP PRN ×2 (20:03)
[2023-08-16] MEDS ORDERED: NIFEdipine 10 MG CAPSULE PO PRN (20:03)
[2023-08-16] MEDS ORDERED: SODIUM CHLORIDE FLUSH 0.9% 10 ML SYRINGE IVP PRN (20:03)
[2023-08-16] MEDS ORDERED: hydrALAZINE INJ 20 MG/ML VIAL IVP PRN ×2 (20:03)
--- NOTE | 2023-08-16 20:05 | PROVIDER PROGRESS NOTE ---
Subjective - Subjective Subjective: HPI: Patient has worsened over the day, blood pressures intermittently severe. Will now start magnesium sulfate for severe preeclampsia. Assuming care from midwifery service. Denies headache, change in vision, right upper quadrant pain. Has had intermittent headache throughout the day. Had clonus on exam earlier today. Also has concern for psychosis by staff. Did doze off today with strange dreams of going to hell. Patient not feeling tired and sleeping minimall y. Does have some concern of 's safety, but this is not keeping her up. Did doze off today with strange dreams of going to hell. Denies history of depression. Feels safe now. No thoughts of harming herself or baby. Physical Exam Constitutional: alert, no acute distress, well hydrated, well developed, well nourished, appropriate dress. Cardiovascular: Regular rate and rhythm. Respiratory: no respiratory distress. Clear to auscultation bilaterally Abdomen: nondistended, nontender, no guarding. Neuro: 1+ DTRs, no clonus Psych: Flat affect, but overal normal conversation. Input/output Labs: Essentially unchanged from prior. Platelets 200, creatinine 0.7, AST/ALT 51/80. Assessment plan Preeclampsia severe features -Will start oral labetalol at this time as blood pressure has become nonsevere. -Start magnesium sulfate for seizure prophylaxis. -Labs every 12 hours -Will start oral labetolol -IV antihypertensives if severe-range. depression vs sleep deprivation -Agree with starting sertraline. -Will also start hydroxyzine for anxiety. -Encouraged to utilize support system and staff. -S/p social work consult. -Consider telepsych consult if acutely worsening, hallucinations develop, or concern for safety develops. Insomnia -Help from hydroxyzine Objective - Vital Signs/Intake & Output Vital Signs: Vital Signs x48h Temp Pulse Resp BP BP Pulse Ox 08/16/23 19:00 76 15 145/87 H 08/16/23 18:46 75 134/82 H 99 08/16/23 18:10 75 159/94 H 08/16/23 18:01 98.2 F 70 16 163/97 H 08/16/23 17:55 75 153/106 H 08/16/23 17:35 97 146/93 H 08/16/23 14:20 98.2 F 74 14 139/76 H 98 Intake & Output: Intake & Output 08/13/23 08/14/23 08/15/23 08/16/23 23:59 23:59 23:59 23:59 Intake Total 1632.500 200 800 Output Total 8836 733 5474 Balance 307.500 -400 -1400 - Lab Results Fish Bones: 08/16/23 16:29 08/16/23 16:29 Other Labs: Lab Results x24hrs 08/16/23 08/16/23 08/16/23 Range/Units 16:29 16:29 04:13 WBC 10.3 (4.8-10.8) x10^3/uL RBC 3.46 L (4.20-5.40) 10^6/uL Hgb 10.1 L (12.0-16.0) g/dL Hct 30.9 L (37.0-47.0) % MCV 89.3 (81.0-99.0) fL MCH 29.2 (27.0-31.0) pg MCHC 32.7 (32.0-36.0) g/dL RDW 14.4 (12.0-15.0) % Plt Count 200 (130-450) 10^3/uL MPV 11.3 H (7.9-10.8) fL Neut # (Auto) 8.2 H (1.5-6.6) 10^3/uL Lymph # (Auto) 1.2 L (1.5-3.5) 10^3/uL [place] # (Auto) 0.4 (0.0-1.0) 10^3/uL Eos # (Auto) 0.3 (0.0-0.7) 10^3/uL Baso # (Auto) 0.0 (0.0-0.1) 10^3/uL Absolute Nucleated RBC 0.00 x10^3/uL Nucleated RBC % 0.0 /100WBC Sodium 136 137 (135-145) mmol/L Potassium 3.8 4.0 (3.5-4.5) mmol/L Chloride 101 106 (101-111) mmol/L Carbon Dioxide 24 22 (21-32) mmol/L Anion Gap 11.0 9.0 (6-13) BUN 11 13 (6-20) mg/dL Creatinine 0.7 0.7 (0.6-1.3) mg/dL Estimated GFR (MDRD) 107 107 (>89) Glucose 85 72 L (74-104) mg/dL Calcium 8.8 8.4 L (8.5-10.3) mg/dL Total Bilirubin 0.2 0.2 (0.2-1.0) mg/dL AST 51 H 58 H (10-42) IU/L ALT 80 H 77 H (10-60) IU/L Alkaline Phosphatase 167 H 180 H (42-121) IU/L Total Protein 5.7 L 5.6 L (6.4-8.9) g/dL Albumin 3.0 L 2.9 L (3.2-5.5) g/dL Globulin 2.7 2.7 (2.1-4.2) g/dL Albumin/Globulin Ratio 1.1 1.1 (1.0-2.2) / Range/Units 04:13 WBC 10.8 (4.8-10.8) x10^3/uL RBC 3.57 L (4.20-5.40) 10^6/uL Hgb 10.2 L (12.0-16.0) g/dL Hct 32.6 L (37.0-47.0) % MCV 91.3 (81.0-99.0) fL MCH 28.6 (27.0-31.0) pg MCHC 31.3 L (32.0-36.0) g/dL RDW 14.6 (12.0-15.0) % Plt Count 191 (130-450) 10^3/uL MPV 12.0 H (7.9-10.8) fL Neut # (Auto) 8.3 H (1.5-6.6) 10^3/uL Lymph # (Auto) 1.7 (1.5-3.5) 10^3/uL [place] # (Auto) 0.4 (0.0-1.0) 10^3/uL Eos # (Auto) 0.3 (0.0-0.7) 10^3/uL Baso # (Auto) 0.0 (0.0-0.1) 10^3/uL Absolute Nucleated RBC 0.00 x10^3/uL Nucleated RBC % 0.0 /100WBC Sodium (135-145) mmol/L Potassium (3.5-4.5) mmol/L Chloride (101-111) mmol/L Carbon Dioxide (21-32) mmol/L Anion Gap (6-13) BUN (6-20) mg/dL Creatinine (0.6-1.3) mg/dL Estimated GFR (MDRD) (>89) Glucose (74-104) mg/dL Calcium (8.5-10.3) mg/dL Total Bilirubin (0.2-1.0) mg/dL AST (10-42) IU/L ALT (10-60) IU/L Alkaline Phosphatase (42-121) IU/L Total Protein (6.4-8.9) g/dL Albumin (3.2-5.5) g/dL Globulin (2.1-4.2) g/dL Albumin/Globulin Ratio (1.0-2.2)
--- NOTE | 2023-08-16 20:17 | PROVIDER PROGRESS NOTE ---
Subjective - Prog Note Date Prog Note Date: 08/16/23 Prog Note Time: 19:53 - Subjective Pt reports feeling: Worse Subjective: Subjective: Patient feeling overall not well. Feels she has not slept in over two nights. "just can't sleep." Recurrent headache. Throbbing above her right eye. No visual changes. No right upper quadrant pain. Fell asleep for a few minutes and woke up sharing she "dreamt her she because of her blood pressure and was in [place]." Describes her thoughts as "really worried. Worried she may not be okay and can't take care of herself, her baby or be a there as a " Voiding increased since starting Lasix. Has missed measuring several voids. But feels like her voiding has significantly increased. Bottle feeding baby. Limited time out of bed today. Continued encouragement by nursing team to get out of bed. Social work in room for consult recently after nursing team concerns for statements such as "I don't think the baby likes me." Intermittently tearful. 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 Objective - Vital Signs/Intake & Output Reviewed Vital Signs: Yes Vital Signs: Vital Signs x48h Temp Pulse Resp BP BP Pulse Ox 08/16/23 19:00 76 15 145/87 H 08/16/23 18:46 75 134/82 H 99 08/16/23 18:10 75 159/94 H 08/16/23 18:01 36.8 C 70 16 163/97 H 08/16/23 17:55 75 153/106 H 08/16/23 17:35 97 146/93 H 08/16/23 14:20 36.8 C 74 14 139/76 H 98 Intake & Output: Intake & Output 08/13/23 08/14/23 08/15/23 08/16/23 23:59 23:59 23:59 23:59 Intake Total 1632.500 200 800 Output Total 0982 440 6276 Balance 307.500 -400 -1400 - Objective General Appearance: positive: No acute distress Eyes Bilateral: positive: Normal inspection - Lab Results Fish Bones: 08/16/23 16:29 08/16/23 16:29 Other Labs: Lab Results x24hrs 08/16/23 08/16/23 08/16/23 Range/Units 16:29 16:29 04:13 WBC 10.3 (4.8-10.8) x10^3/uL RBC 3.46 L (4.20-5.40) 10^6/uL Hgb 10.1 L (12.0-16.0) g/dL Hct 30.9 L (37.0-47.0) % MCV 89.3 (81.0-99.0) fL MCH 29.2 (27.0-31.0) pg MCHC 32.7 (32.0-36.0) g/dL RDW 14.4 (12.0-15.0) % Plt Count 200 (130-450) 10^3/uL MPV 11.3 H (7.9-10.8) fL Neut # (Auto) 8.2 H (1.5-6.6) 10^3/uL Lymph # (Auto) 1.2 L (1.5-3.5) 10^3/uL [place] # (Auto) 0.4 (0.0-1.0) 10^3/uL Eos # (Auto) 0.3 (0.0-0.7) 10^3/uL Baso # (Auto) 0.0 (0.0-0.1) 10^3/uL Absolute Nucleated RBC 0.00 x10^3/uL Nucleated RBC % 0.0 /100WBC Sodium 136 137 (135-145) mmol/L Potassium 3.8 4.0 (3.5-4.5) mmol/L Chloride 101 106 (101-111) mmol/L Carbon Dioxide 24 22 (21-32) mmol/L Anion Gap 11.0 9.0 (6-13) BUN 11 13 (6-20) mg/dL Creatinine 0.7 0.7 (0.6-1.3) mg/dL Estimated GFR (MDRD) 107 107 (>89) Glucose 85 72 L (74-104) mg/dL Calcium 8.8 8.4 L (8.5-10.3) mg/dL Total Bilirubin 0.2 0.2 (0.2-1.0) mg/dL AST 51 H 58 H (10-42) IU/L ALT 80 H 77 H (10-60) IU/L Alkaline Phosphatase 167 H 180 H (42-121) IU/L Total Protein 5.7 L 5.6 L (6.4-8.9) g/dL Albumin 3.0 L 2.9 L (3.2-5.5) g/dL Globulin 2.7 2.7 (2.1-4.2) g/dL Albumin/Globulin Ratio 1.1 1.1 (1.0-2.2) / Range/Units 04:13 WBC 10.8 (4.8-10.8) x10^3/uL RBC 3.57 L (4.20-5.40) 10^6/uL Hgb 10.2 L (12.0-16.0) g/dL Hct 32.6 L (37.0-47.0) % MCV 91.3 (81.0-99.0) fL MCH 28.6 (27.0-31.0) pg MCHC 31.3 L (32.0-36.0) g/dL RDW 14.6 (12.0-15.0) % Plt Count 191 (130-450) 10^3/uL MPV 12.0 H (7.9-10.8) fL Neut # (Auto) 8.3 H (1.5-6.6) 10^3/uL Lymph # (Auto) 1.7 (1.5-3.5) 10^3/uL [place] # (Auto) 0.4 (0.0-1.0) 10^3/uL Eos # (Auto) 0.3 (0.0-0.7) 10^3/uL Baso # (Auto) 0.0 (0.0-0.1) 10^3/uL Absolute Nucleated RBC 0.00 x10^3/uL Nucleated RBC % 0.0 /100WBC Sodium (135-145) mmol/L Potassium (3.5-4.5) mmol/L Chloride (101-111) mmol/L Carbon Dioxide (21-32) mmol/L Anion Gap (6-13) BUN (6-20) mg/dL Creatinine (0.6-1.3) mg/dL Estimated GFR (MDRD) (>89) Glucose (74-104) mg/dL Calcium (8.5-10.3) mg/dL Total Bilirubin (0.2-1.0) mg/dL AST (10-42) IU/L ALT (10-60) IU/L Alkaline Phosphatase (42-121) IU/L Total Protein (6.4-8.9) g/dL Albumin (3.2-5.5) g/dL Globulin (2.1-4.2) g/dL Albumin/Globulin Ratio (1.0-2.2) - Other Results/Comments Other Results/Comments: General: Alert, oriented, tearful. Cardiovascular: 1+ edema, bilateral lower extremities. Regular rate. Regular rhythm. Lungs: No increased work of breathing. Abdomen: Uterus firm. Below umbilicus. No guarding or rebound tenderness. Extremities: No pain on palpation. Distal pulses intact. 1 beat of clonus to left, 2 beats to right. BP intermittently severe. Most recent BP 164/108. Assessment/Plan - Problem List (1) Vaginal delivery Impression: Assessment and Plan 18 yo s/p vaginal delivery of viable female on 08/12 PPD #3 - Routine care - encourage ambulation (2) Obstetric vaginal laceration Impression: - Healing well. - routine care (3) Chorioamnionitis Impression: - Afebrile, WBC WNL, No signficant abdominal pain. - Reviewed precautions for pp intrauterine infection. (4) Prolonged second stage of labor due to poor maternal effort Impression: - light bleeding. - Reviewed bleeding precautions. (5) Prolonged labor antepartum Impression: - light bleeding - reviewed bleeding precautions. (6) mood disturbance Impression: - denies SI/HI - will plan for a second social work consult for tomorrow - Consider psych consult if symptoms worsening tomorrow. - Extended discussion re: SSRI and positive effect on mood improvement - Literature on depression and psychosis shared. - Agreeable to starting 100mg sertraline daily. - sleep deprivation likely a contributor to sharp increase in anxiety. Encouraged uninterrupted sleep through the night - Hydroxyzine 50mg PO PRN sleep/panic. - encourage pp CBT (7) Pre-eclampsia, severe, delivered with condition Impression: - See separate CNM documentation - Severe range blood pressures, throbbing headache. Meets criteria for preeclampsia WITH severe features - Blood pressure management now includes IV labetalol. Will continue Lasix - Transfer to physician care.
[2023-08-16] MEDS: LABETALOL 100 MG TABLET PO SCH (20:33)
[2023-08-16] MEDS ORDERED: LABETALOL 20 MG/4 ML SYRINGE IVP SCH (21:00)
[2023-08-16] MEDS ORDERED: SODIUM CHLORIDE FLUSH 0.9% 10 ML SYRINGE IVP SCH (21:00)
[2023-08-16] MEDS: LACTATED RINGERS 1,000 ML IV SCH (21:10)
[2023-08-16] MEDS: MAGNESIUM SULFATE 4 GRAM 4 GM/50 ML BAG IV ONE (21:11)
[2023-08-16] MEDS: hydrOXYzine PAMOATE 25 MG CAPSULE PO PRN (21:36)
[2023-08-16] MEDS: SERTRALINE 50 MG TABLET PO ONE (21:39)
[2023-08-16] MEDS: MAGNESIUM SULFATE 2 GRAM 2 GM/50 ML BAG IV ONE (21:52)
[2023-08-16] MEDS: MAGNESIUM SULFATE IN WATER 20 GM/500 ML IV.SOLN IV SCH (22:43)
[2023-08-17] MEDS: LABETALOL 20 MG/4 ML SYRINGE IVP PRN (08:28)
[2023-08-17] MEDS ORDERED: SERTRALINE 50 MG TABLET PO SCH ×2 (09:00→11:00)
[2023-08-17] MEDS: NIFEdipine ER 30 MG TABLET PO SCH (09:18)
--- NOTE | 2023-08-17 10:30 | PROVIDER PROGRESS NOTE ---
Subjective - Subjective Subjective: HPI: Denies headache, change in vision, right upper quadrant pain. Does feel sleepy with hydroxyzine. Fell asleep shortly after our visit. Anxiety improved, but present. Had additional episode of severe range hypertension sustained, so received an additional 20 mg of labetalol. Physical Exam Constitutional: alert, no acute distress, well hydrated, well developed, well nourished, appropriate dress. Cardiovascular: Regular rate and rhythm. Respiratory: no respiratory distress. Clear to auscultation bilaterally Abdomen: nondistended, nontender, no guarding. Neuro: 1+ DTRs, no clonus Psych: affect and mood appropriate, normal interaction, good eye contact. Assessment plan Preeclampsia severe features -Switch to nifedipine extended release for once daily dosing. -Will repeat magnesium level as it is subtherapeutic -Labs every 12 hour, s due at noon. -IV antihypertensives if severe-range. depression vs sleep deprivation -Continue sertraline and hydroxyzine -Patient feels anxiety has improved with hydroxyzine. Also sleeping better. -Encouraged to utilize support system and staff. -S/p social work consult. -Consider telepsych consult if acutely worsening, hallucinations develop, or concern for safety develops. Objective - Vital Signs/Intake & Output Vital Signs: Vital Signs x48h Temp Pulse Resp BP Pulse Ox 08/17/23 09:36 102 H 16 144/86 H 99 08/17/23 09:19 98.4 F 99 14 149/89 H 97 08/17/23 09:05 91 143/91 H 08/17/23 08:50 94 14 156/96 H 99 08/17/23 08:45 81 14 153/103 H 08/17/23 08:40 90 14 155/100 H 99 08/17/23 08:15 172/114 H 08/17/23 08:00 98.6 F 87 16 167/104 H 99 08/17/23 05:30 98.8 F 87 16 144/80 H 96 08/17/23 03:30 84 16 143/76 H 95 Intake & Output: Intake & Output 08/14/23 08/15/23 08/16/23 08/17/23 23:59 23:59 23:59 23:59 Intake Total 314 599 0432.25 Output Total 600 2950 1330 Balance -400 -2050 1546.25 - Lab Results Fish Bones: 08/16/23 16:29 08/16/23 16:29 Other Labs: Lab Results x24hrs 08/17/23 08/16/23 08/16/23 Range/Units 00:34 16:29 16:29 WBC 10.3 (4.8-10.8) x10^3/uL RBC 3.46 L (4.20-5.40) 10^6/uL Hgb 10.1 L (12.0-16.0) g/dL Hct 30.9 L (37.0-47.0) % MCV 89.3 (81.0-99.0) fL MCH 29.2 (27.0-31.0) pg MCHC 32.7 (32.0-36.0) g/dL RDW 14.4 (12.0-15.0) % Plt Count 200 (130-450) 10^3/uL MPV 11.3 H (7.9-10.8) fL Neut # (Auto) 8.2 H (1.5-6.6) 10^3/uL Lymph # (Auto) 1.2 L (1.5-3.5) 10^3/uL [place] # (Auto) 0.4 (0.0-1.0) 10^3/uL Eos # (Auto) 0.3 (0.0-0.7) 10^3/uL Baso # (Auto) 0.0 (0.0-0.1) 10^3/uL Absolute Nucleated RBC 0.00 x10^3/uL Nucleated RBC % 0.0 /100WBC Sodium 136 (135-145) mmol/L Potassium 3.8 (3.5-4.5) mmol/L Chloride 101 (101-111) mmol/L Carbon Dioxide 24 (21-32) mmol/L Anion Gap 11.0 (6-13) BUN 11 (6-20) mg/dL Creatinine 0.7 (0.6-1.3) mg/dL Estimated GFR (MDRD) 107 (>89) Glucose 85 (74-104) mg/dL Calcium 8.8 (8.5-10.3) mg/dL Magnesium 3.3 H (1.7-2.3) mg/dL Total Bilirubin 0.2 (0.2-1.0) mg/dL AST 51 H (10-42) IU/L ALT 80 H (10-60) IU/L Alkaline Phosphatase 167 H (42-121) IU/L Total Protein 5.7 L (6.4-8.9) g/dL Albumin 3.0 L (3.2-5.5) g/dL Globulin 2.7 (2.1-4.2) g/dL Albumin/Globulin Ratio 1.1 (1.0-2.2)
[2023-08-17 12:15] LABS: BASOPHILS % (AUTO) 0.3 %; EOSINOPHILS # (AUTO) 0.2 10^3/uL (0.0-0.7); HCT - HEMATOCRIT 34.4 % (37.0-47.0); HGB - HEMOGLOBIN 11.2 g/dL (12.0-16.0); LYMPHOCYTES % (AUTO) 8.9 %; MEAN CORPUSCULAR HEMOGLOBIN 28.7 pg (27.0-31.0); MEAN CORPUSCULAR HGB CONC 32.6 g/dL (32.0-36.0); MEAN CORPUSCULAR VOLUME 88.2 fL (81.0-99.0); MEAN PLATELET VOLUME 10.7 fL (7.9-10.8); MONOCYTES # (AUTO) 0.3 10^3/uL (0.0-1.0); MONOCYTES % (AUTO) 2.7 %; NEUTROPHILS # (AUTO) 9.6 10^3/uL (1.5-6.6); NEUTROPHILS % (AUTO) 84.7 %; PLT - PLATELET COUNT 248 10^3/uL (130-450); RED CELL DISTRIBUTION WIDTH 14.4 % (12.0-15.0); WHITE BLOOD COUNT 11.3 x10^3/uL (4.8-10.8)
[2023-08-17 12:31] LABS: ALBUMIN 3.3 g/dL (3.2-5.5); ALBUMIN/GLOBULIN RATIO 1.1 (1.0-2.2); BILIRUBIN,TOTAL 0.2 mg/dL (0.2-1.0); CALCIUM 8.1 mg/dL (8.5-10.3); CREATININE 0.6 mg/dL (0.6-1.3); POTASSIUM 3.6 mmol/L (3.5-4.5); TOTAL PROTEIN 6.2 g/dL (6.4-8.9)
[2023-08-17] MEDS: SERTRALINE 50 MG TABLET PO SCH (21:12)
[2023-08-18 13:03] VITALS: BP 140/80; O2SAT 99
[2023-08-18] MEDS: FUROSEMIDE 40 MG TABLET PO STA (15:51)
--- NOTE | 2023-08-18 16:46 | Labor Flowsheet ---
Labor Flowsheet Datetime Report Generated by CPN: 08/18/2023 16:46 Datetime: 08/13/2023 12:35 Pulse: 91 SpO2 (%): 98 Datetime: 08/13/2023 12:34 VITAL SIGNS NBP Sys/Camila/Mean (mmHg): 128 : 88 : 94 Datetime: 08/13/2023 07:46 Temperature (C): 37.4 PAIN Pain Scale: 5 Datetime: 08/13/2023 06:52 Stage of : Recovery Respirations: 18 Temperature Route: Oral Pain Presence: None/Denies Datetime: 08/13/2023 06:46 Membranes Ruptured Date/Time: 08/12/2023 17:48 Cervical Ripening Agents: Rose Balloon; Cytotec @ Datetime: 08/13/2023 06:34 Communication Comments: viable delivery of baby girl Datetime: 08/13/2023 05:15 Monitor Interventions for UA: [place] Adjusted Datetime: 08/13/2023 05:05 Monitor Interventions for FHR: Ultrasound Adjusted COMMUNICATION Communication: RN at Bedside; RN Reviewed Strip; Provider at Bedside Datetime: 08/13/2023 04:57 LaborFlag: Labor Datetime: 08/13/2023 04:52 Antibiotics: Ampicillin IV 2 Gm Datetime: 08/13/2023 04:35 Comments: Difficulty tracing due to pushing Datetime: 08/13/2023 04:31 Notification Reason: Status Datetime: 08/13/2023 04:29 MATERNAL ASSESSMENT Level of Consciousness: Alert Headache: Denies Nausea/Vomiting: Denies RUQ Epigastric Pain: Denies Datetime: 08/13/2023 03:54 Patient Position/Activity: Left Extreme Patient Care Comments: Knee chest pushing Datetime: 08/13/2023 02:20 TEACHING Instructional Method: Verbal Labor/Induction: Pushing Methods Datetime: 08/13/2023 02:15 VAGINAL EXAM Dilatation (cm): 10.0 Exam by: Mesha Datetime: 08/13/2023 02:00 UTERINE ACTIVITY Monitor Mode: External Frequency (min): 1-3min Quality: Moderate Duration (sec): 60-80sec Pattern: Normal: <= 5 Contractions in 10 Minutes Resting Tone (Palpate): Relaxed ASSESSMENT A Monitor Mode: External US FHR Baseline Rate : 130 FHR Baseline Changes: No Baseline Change Variability: Moderate 6-25 bpm Accelerations: 15X15 Decelerations: None Category: Category I PATIENT CARE Oxygen Method: Room Air Datetime: 08/13/2023 01:13 MEDICATIONS Pitocin (milliunits): Decreased to @ 11 Datetime: 08/13/2023 00:49 Effacement (%): 90 Station: 1 Datetime: 08/12/2023 23:31 Vital Sign Comments: Rn at bedside pt repositioning at this time Datetime: 08/12/2023 22:28 Provider Notified (Name): Wendy Datetime: 08/12/2023 18:26 Medication Comments: bolus completed Datetime: 08/12/2023 18:15 Contraction Comments: coupling Datetime: 08/12/2023 17:58 Epidural Procedure: Test Dose Datetime: 08/12/2023 17:45 ANESTHESIA Epidural Positioning: Sitting Datetime: 08/12/2023 17:42 Anesthesia Comments: anesthesia at bedside Datetime: 08/12/2023 17:25 Membrane Status: Ruptured Membranes Rupture Method: Spontaneous Amniotic Fluid Color: Clear Amniotic Fluid Amount: Moderate Amniotic Fluid Odor: None Nitrazine: Positive Datetime: 08/12/2023 16:02 Pitocin Checklist: At Least 1 Acceleration of 15 bpm x 15 Seconds in 30 Minutes or Adequate Variabi lity; No More than 1 Late Deceleration Occurred in Past 30 Minutes; No More than 2 Variable Decelerat ions > 60 Seconds in Duration and decreasing >60 bpm in 30 minutes; No More than 5 Uterine Contractio ns in 10 Minutes for any 20 Minute Interval; Uterus Palpates Soft between Contractions Datetime: 08/12/2023 15:15 Pain Type: Cramping Pain Location: Abdomen Pain Relief Measures: Comfort Measures Pain Coping: Breathing Through Contractions Pain Assessment Comments: Encouraged Pt to ambulate to assist with descent but Pt desires to rest in bed. Continue to provide labor support. Datetime: 08/12/2023 05:50 Vaginal Bleeding: None Cervix, Consistency: Moderate Cervix, Position: Posterior
[2023-08-19] MEDS ORDERED: FERROUS SULFATE 325 MG TABLET PO SCH (08:00)
[2023-08-19] MEDS ORDERED: FERROUS SULFATE 325 MG PO SCH (09:00)
== END 2023-08-18 15:50 | disposition home or self-care (01) | DRG 805 ==
LOC: WFO 18:54 → FBP 18:57 → WFO 20:42 → FBP 20:43
PROVIDERS: ADMIT Nurse Practitioner Obstetrics & Gynecology; ATTEND Nurse Practitioner Obstetrics & Gynecology
PROC: 3E033VJ Introduction of Other Hormone into Peripheral Vein, Percutaneous Approach (ICD-10-PCS; 2023-08-11)
PROC: 3E0DXGC Introduction of Other Therapeutic Substance into Mouth and Pharynx, External Approach (ICD-10-PCS; 2023-08-11)
PROC: 0U7C7ZZ Dilation of Cervix, Via Natural or Artificial Opening (ICD-10-PCS; 2023-08-12)
PROC: 10E0XZZ Delivery of Products of Conception, External Approach (ICD-10-PCS; principal; 2023-08-13)
PROC: 0UQGXZZ Repair Vagina, External Approach (ICD-10-PCS; 2023-08-13)
DX: O14.04 Mild to moderate pre-eclampsia, complicating childbirth (principal); O41.1230 Chorioamnionitis, third trimester, not applicable or unspecified; Z37.0 Single live birth; Z3A.39 39 weeks gestation of pregnancy; O63.1 Prolonged second stage (of labor); O76 Abnormality in fetal heart rate and rhythm complicating labor and delivery; O71.4 Obstetric high vaginal laceration alone; O99.344 Other mental disorders complicating childbirth; F41.9 Anxiety disorder, unspecified
CPT/HCPCS: 36415; 59025; 59409; 80053; 82570; 83615; 83735; 84156; 85025; 86850; 86900; 86901; 99215; A9270; J7120; J3475

== ENCOUNTER 2023-08-24 12:08 | Emergency (ER) | payer OTHER ==
[2023-08-24 12:47] LABS: BASOPHILS # (AUTO) 0.1 10^3/uL (0.0-0.1); BASOPHILS % (AUTO) 0.5 %; EOSINOPHILS # (AUTO) 0.2 10^3/uL (0.0-0.7); EOSINOPHILS % (AUTO) 1.2 %; HCT - HEMATOCRIT 41.9 % (37.0-47.0); HGB - HEMOGLOBIN 13.2 g/dL (12.0-16.0); LYMPHOCYTES # (AUTO) 1.6 10^3/uL (1.5-3.5); LYMPHOCYTES % (AUTO) 12.4 %; MEAN CORPUSCULAR HEMOGLOBIN 28.1 pg (27.0-31.0); MEAN CORPUSCULAR HGB CONC 31.5 g/dL (32.0-36.0); MEAN CORPUSCULAR VOLUME 89.3 fL (81.0-99.0); MEAN PLATELET VOLUME 9.5 fL (7.9-10.8); MONOCYTES # (AUTO) 0.4 10^3/uL (0.0-1.0); NEUTROPHILS # (AUTO) 10.7 10^3/uL (1.5-6.6); NEUTROPHILS % (AUTO) 82.1 %; PLT - PLATELET COUNT 408 10^3/uL (130-450); RED BLOOD COUNT 4.69 10^6/uL (4.20-5.40); RED CELL DISTRIBUTION WIDTH 13.5 % (12.0-15.0); WHITE BLOOD COUNT 13.1 x10^3/uL (4.8-10.8)
[2023-08-24 13:04] LABS: ALBUMIN/GLOBULIN RATIO 1.2 (1.0-2.2); BILIRUBIN,TOTAL 0.4 mg/dL (0.2-1.0); CALCIUM 9.5 mg/dL (8.5-10.3); CREATININE 0.7 mg/dL (0.6-1.3); POTASSIUM 4.3 mmol/L (3.5-4.5); TOTAL PROTEIN 7.3 g/dL (6.4-8.9)
--- NOTE | 2023-08-24 13:13 | ED Physician Documentation ---
History of Present Illness - Stated complaint Stated Complaint: RT SIDE ABD PX - Chief complaint Chief Complaint: Abd Pain - History obtained from History obtained from: Patient - History of Present Illness Timing: Today Pain level max: 6 Pain level now: 6 - Additonal information Additional information: 18-year-old female status post vaginal delivery 2 weeks ago. This was complicated by preeclampsia and chorioamnionitis. She states that today she has developed lower abdominal pain. She states she is still having vaginal bleeding or discharge. She has had chills but no fevers. No breast pain. No neck pain or headaches. Some nausea but no vomiting. No diarrhea or constipation. Worse with movement and palpation. Nothing makes it better. No urinary symptoms. Review of Systems Constitutional: denies: Fever GI: denies: Vomiting, Diarrhea, Hematemesis, Bloody / black stool : denies: Dysuria, Frequency, Hesitancy Skin: denies: Rash Musculoskeletal: denies: Neck pain, Back pain Neurologic: denies: Headache PD PAST MEDICAL HISTORY - Past Medical History Cardiovascular: None Respiratory: None Neuro: None Endocrine/Autoimmune: None GI: None DEPUTY DIRECTOR OF FINANCE: None : None HEENT: None Psych: None Musculoskeletal: None - Past Surgical History Past Surgical History: No - Present Medications Home Medications: Ambulatory Orders Medication Instructions Recorded Confirmed Ferrous Sulfate [Feosol] 325 mg PO DAILY 04/25/23 08/12/23 Cholecalciferol (Vitamin D3) 125 mcg PO DAILY #365 cap 08/18/23 [D3-5000] Furosemide [Lasix] 20 mg PO DAILY #5 tablet 08/18/23 Ibuprofen [Motrin] 800 mg PO Q8H PRN #30 tab 08/18/23 NIFEdipine [Procardia Xl] 30 mg PO DAILY #30 tab 08/18/23 [place]-3/Dha/Epa/Fish Oil [Fish Oil 1 each PO DAILY #365 cap 08/18/23 EC 1,200 mg Softgel] Pnv No.95/Ferrous Fum/Folic AC 1 each PO DAILY #90 tablet 08/18/23 [ [place]] hydrOXYzine PAMOATE [Vistaril] 25 - 50 mg PO Q6H PRN #60 cap 08/18/23 Amox/Clav 875/125 [Augmentin] 1 tab PO Q12H #14 tablet 08/24/23 oxyCODONE [Roxicodone] 5 - 10 mg PO Q6H PRN #10 tablet 08/24/23 MDD 6 - Allergies Allergies/Adverse Reactions: Allergies Allergy/AdvReac Type Severity Reaction Status Date / Time No Known Drug Allergies Allergy Verified 08/24/23 12:25 - Social History Does the pt smoke?: No Smoking Status: Never smoker Does the pt drink ETOH?: No Does the pt have substance abuse?: No - Immunizations Immunizations are current?: Yes PD ED PE NORMAL - Vitals Vital signs reviewed: Yes - General General: Alert and oriented X 3, No acute distress - HEENT HEENT: Moist mucous membranes - Neck Neck: Supple, no meningeal sign - Cardiac Cardiac: RRR, Strong equal pulses - Respiratory Respiratory: No respiratory distress, Clear bilaterally - Abdomen Abdomen: Soft, Non distended, Other (Tender to palpation suprapubic. Negative Rovsing's and psoas signs. Negative heeltap.) - Back Back: No CVA TTP, No spinal TTP - Derm Derm: Warm and dry - Extremities Extremities: No edema - Neuro Neuro: Alert and oriented X 3 - Psych Psych: Normal mood, Normal affect Results - Vitals Vitals: Vital Signs - 24 hr 08/24/23 08/24/23 08/24/23 12:21 14:37 15:56 Temperature 36.3 C L 36.5 C Heart Rate 80 68 91 Respiratory 16 28 H 18 Rate Blood Pressure 137/72 H 118/76 128/74 O2 Saturation 99 97 98 Oxygen O2 Source Room air - Labs Labs: Laboratory Tests 08/24/23 08/24/23 08/24/23 12:39 12:39 13:05 WBC 13.1 H RBC 4.69 Hgb 13.2 Hct 41.9 MCV 89.3 MCH 28.1 MCHC 31.5 L RDW 13.5 Plt Count 408 MPV 9.5 Neut # (Auto) 10.7 H Lymph # (Auto) 1.6 [place] # (Auto) 0.4 Eos # (Auto) 0.2 Baso # (Auto) 0.1 Absolute Nucleated RBC 0.00 Nucleated RBC % 0.0 Sodium 139 Potassium 4.3 Chloride 104 Carbon Dioxide 26 Anion Gap 9.0 BUN 13 Creatinine 0.7 Estimated GFR (MDRD) 107 Glucose 99 Calcium 9.5 Total Bilirubin 0.4 AST 25 ALT 41 Alkaline Phosphatase 183 H Total Protein 7.3 Albumin 4.0 Globulin 3.3 Albumin/Globulin Ratio 1.2 Lipase 10 L Urine Color YELLOW Urine Clarity CLEAR Urine pH 7.0 Ur Specific [place] 1.015 Urine Protein 30 H Urine Glucose (UA) NEGATIVE Urine Ketones NEGATIVE Urine Occult Blood LARGE H Urine Nitrite NEGATIVE Urine Bilirubin NEGATIVE Urine Urobilinogen 0.2 (NORMAL) Ur Leukocyte Esterase SMALL H Urine RBC TNTC H Urine WBC 11-25 H Ur Squamous Epith Cells RARE Squamous Urine Bacteria None Seen Ur Microscopic Review INDICATED Urine Culture Comments INDICATED - Rads (name of study) CT abdomen pelvis Relevant Findings:: Final report received, See rad report PD Medical Decision Making - ED course Complexity details: reviewed results, re-evaluated patient, considered differential, d/w patient, d/w client development consultant ED course: Discussed the case with Dr. Hussein, OB on-call. Concern regarding possible endometritis, she recommends a CT scan abdomen pelvis to evaluate for potential other causes of abdominal pain. The appendix is normal and, her CT is normal except an enlarged uterus. Patient's pain is well-controlled. Tolerating p.o. without difficulty here. She is cell tender suprapubic. Afebrile. Not septic appearing. Discussed the case with Dr. Hussein again, she recommends oral Augmentin and follow-up in clinic either Friday or Friday. Strict return precautions were given to the patient and her including any development of fevers or worsening pain they are to return immediately. They are comfortable going home at this time. Patient counseled regarding signs and symp toms for which I believe and urgent re-evaluation would be necessary. Patient with good understanding of and agreement to plan and is comfortable going home at this time This document was made in part using voice recognition software. While efforts are made to proofread this document, sound alike and grammatical errors may occur. Departure - Departure Disposition: Home, Self Care Clinical Impression: Endometritis Condition: Good Instructions: ED Endometritis Obstetric, ED Endometritis Non Obstetric Follow-[facility]: [facility] [Provider Group] Jag Hussein MD [Provider Admit Priv/Credential] - Prescriptions: Amox/Clav 875/125 [Augmentin] 1 tab PO Q12H #14 tablet oxyCODONE [Roxicodone] 5 - 10 mg PO Q6H PRN #10 tablet MDD 6 PRN Reason: pain Comments: Take all antibiotics until gone. Please return if you worsen. Return especially for worsening pain, fevers or any other new or worrisome symptoms. You should follow-up with the women's health clinic either tomorrow or Friday. If you do not hear from them tomorrow morning, please call them for an appointment. I spoke with Dr. Hussein today. Your prescriptions were sent to [facility] in [place]. I am prescribing a short course of narcotic pain medication for you. These are potentially dangerous and addictive medications that should be used carefully. These medications may constipate you. Take an [id number] stool softener (docusate) twice daily with plenty of water while taking these medications. If you go 24 hours without a bowel movement, take [id number] miralax, per package instructions. Do not drink or drive while taking these medications. If you received narcotic or sedating medications while in the emergency department, do not drive for 24 hours. Store this medication in a safe, secure place and out of reach of children. It is a violation of federal law to give or sell this medication to another person or to use in a manner other than prescribed. The ED will not refill narcotic prescriptions, including prescriptions lost or stolen. To dispose of unwanted medications: 1. [facility] at [address] in [place] has a medication drop box. They accept prescription medications (in pill form) Friday through Friday 9:00 a.m. to 5:00 p.m. 2. The [facility] [employer] accepts prescription medications (in pill form only) for disposal year round. Call for more information. 3. Contact the [facility] for the next [facility] sponsored prescription drug collection event. , [phone], or [phone]; Forms: PCP List Discharge Date/Time: 08/24/23 16:35
[2023-08-24 13:51] LABS: BILIRUBIN,URINE NEGATIVE (NEGATIVE); GLUCOSE, URINE (UA) NEGATIVE (NEGATIVE); KETONES,URINE (UA) NEGATIVE (NEGATIVE); LEUKOCYTE ESTERASE, URINE SMALL (NEGATIVE); NITRITE,URINE NEGATIVE (NEGATIVE); OCCULT BLOOD,URINE LARGE (NEGATIVE); PROTEIN,URINE 30 mg/dL (NEGATIVE); UROBILINOGEN,URINE 0.2 (NORMAL) E.U./dL (NORMAL)
[2023-08-24 13:52] LABS: CLARITY,URINE CLEAR (CLEAR)
[2023-08-24 14:03] LABS: BACTERIA,URINE None Seen /HPF (None Seen); RBC,URINE TNTC /HPF (0-5); SQUAMOUS EPITHELIAL CELL,UR RARE Squamous (<= Few)
[2023-08-24] MEDS ORDERED: iohexoL-300 100 ML VIAL ONE (14:31)
[2023-08-24] MEDS: MORPHINE 2 MG/ML CARPUJECT IVP STA (14:49)
--- NOTE | 2023-08-24 15:04 | CT Report ---
PROCEDURE: Abdomen/Pelvis W INDICATIONS: pelvic pain 2 weeks post CONTRAST: 100ml omni 300 TECHNIQUE: After the administration of intravenous contrast, a CT scan of the abdomen and pelvis was performed. Images were recorded and evaluated at appropriate window settings. Reformats: coronal and sagittal. F or radiation dose reduction, the following was used: automated exposure control, adjustment of mA and /or kV according to patient size. COMPARISON: None. FINDINGS: Image quality: Diagnostic. Lower chest: Unremarkable. Liver: No solid mass. Gallbladder: Unremarkable. Biliary tree: No intrahepatic or extrahepatic dilation, accounting for age. Spleen: No splenomegaly. Pancreas: No pancreatic ductal dilation. Adrenals: No adrenal nodule. Kidneys and ureters: No hydronephrosis. No renal cystic lesion which requires follow up. No solid mas s. Stomach, bowel and peritoneum: No gastric or small bowel dilation. No abnormal wall thickening. No pa thologic free fluid. Prominent colonic stool without obstruction. Lymph nodes: No central or retroperitoneal adenopathy. Vessels: No infrarenal aortic aneurysm. Patent portal vein. PELVIS Reproductive organs: Enlarged uterus consistent with appearance. Bladder: No abnormal wall thickening, accounting for underdistention. Pelvic lymph nodes: No pelvic adenopathy by size criteria. Bones: No aggressive osseous abnormality. Other: No significant ventral or inguinal hernia. IMPRESSION: Enlarged uterus consistent appearance. No surrounding inflammatory change or free fluid. I f concern persists, ultrasound is recommended. Moderate colonic stool without obstruction. Reviewed by: Cynthia Cooper MD on 08/24/2023 3:03 PM PDT Approved by: Cynthia Cooper MD on 08/24/2023 3:03 PM PDT Station ID: [id number]
[2023-08-24] MEDS: AMOX/CLAV 875 MG/125 MG TABLET PO STA (16:01)
[2023-08-24 16:06] VITALS: BP 128/74; O2SAT 98
[2023-08-24] MEDS: iohexoL-300 100 ML VIAL IVP ONE (17:15)
== END 2023-08-24 16:35 | disposition home or self-care (01) ==
LOC: ED 12:08
DX: N71.9 Inflammatory disease of uterus, unspecified (principal)
CPT/HCPCS: 36415; 74177; 80053; 81001; 83690; 85025; 87086; 96374; 99284; A9270; Q9967; 81003